=== PATIENT | female | born 1965 ===

== ENCOUNTER 2017-01-16 14:38 | Emergency (ER) | payer OTHER ==
[2017-01-16 14:39] VITALS: BMI 29.2
[2017-01-16 14:59] VITALS: TEMP 98.4
--- NOTE | 2017-01-16 15:29 | ED PDOC ---
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 Patient denies any recent trauma or injury. Patient states she's been having pain to the right thumb for a little over a month. Patient states the pain started suddenly. The patient states that she has continued to work with the pain. She states that she uses her hands frequently at work and thinks that is continue to aggravate the pain. She has not taken any medications for pain at home. She denies numbness weakness or tingling in the extremity. No fevers or chills. No other complaints Time/Duration: > month (>1 month) Symptom Onset: Gradual Symptom Course: Worsening Quality: Aching, Throbbing Severity Level: 8 Past Medical History - Provider Review Nursing Documentation Reviewed: Yes - Travel History Have you recently traveled outside [place] w/in the past 3 mons?: No - Infectious Disease Hx of Infectious Diseases: None - Tetanus Immunization Tetanus Immunization: Unknown - Reproductive Menopause: Yes - Past Medical History Past Medical History: Non-Contributing - Cardiac Hx Cardiac Disorders: Yes Hx Hypertension: Yes - Pulmonary Hx Respiratory Disorders: No - Neurological Hx Neurological Disorder: Yes - HEENT Hx HEENT Disorder: No - Renal Hx Renal Disorder: No - Endocrine/Metabolic Hx Endocrine Disorders: No - Hematological/Oncological Hx Blood Disorders: No - Integumentary Hx Dermatological Disorder: No - Musculoskeletal/Rheumatological Hx Musculoskeletal Disorders: Yes Hx Falls: Yes Other/Comment: SCIATICA - Gastrointestinal Hx Gastrointestinal Disorders: No - Genitourinary/Gynecological Hx Genitourinary Disorders: No - Psychiatric Hx Psychophysiologic Disorder: Yes Hx Anxiety: Yes Hx Depression: Yes Hx Substance Use: No Other/Comment: Insomia - Past Surgical History Past Surgical History: No Previous - Anesthesia Hx Anesthesia: No Hx Anesthesia Reactions: No Hx Malignant Hyperthermia: No - Suicidal Assessment Feels Threatened In Home Enviroment: No Family/Social History - Physician Review Nursing Documentation Reviewed: Yes Family/Social History: Unknown Family HX Smoking Status: Never Smoked Hx Alcohol Use: No Hx Substance Use: No Hx Substance Use Treatment: No Allergies/Home Meds Allergies/Adverse Reactions: Allergies No Known Allergies Allergy (Verified 08/03/15 17:03) Home Medications: Home Meds Medication Instructions Recorded Confirmed Atenolol 50 mg PO DAILY 08/03/15 01/16/17 amLODIPine [Norvasc] 5 mg PO DAILY 01/16/17 01/16/17 Review of Systems - Review of Systems Constitutional: absent: Fatigue, Fevers Respiratory: absent: SOB, Cough Cardiovascular: absent: Chest Pain, Palpitations Gastrointestinal: absent: Abdominal Pain, Vomiting Genitourinary Female: absent: Dysuria Musculoskeletal: Arthralgias (right thumb pain). absent: Back Pain, Neck Pain Skin: absent: Rash, Pruritis Neurological: absent: Headache, Dizziness Psychiatric: absent: Anxiety, Depression Physical Exam Vital Signs Reviewed: Yes Vital Signs Temp Pulse Resp BP Pulse Ox 01/16/17 14:58 98.4 F 72 16 107/72 98 Temperature: Afebrile Blood Pressure: Normal Pulse: Regular Respiratory Rate: Normal Appearance: Positive for: Well-Appearing, Non-Toxic, Comfortable Pain Distress: None Mental Status: Positive for: Alert and Oriented X 3 - Systems Exam Head: Present: Atraumatic Mouth: Present: Moist Mucous Membranes Neck: Present: Normal Range of Motion Respiratory/Chest: Present: Clear to Auscultation, Good Air Exchange. No: Respiratory Distress, Accessory Muscle Use Cardiovascular: Present: Regular Rate and Rhythm Upper Extremity: Present: NORMAL PULSES, Tenderness (right thumb; + ttp over volar aspect of thumb over 1st metacarpal; limited rom of thumb with pain; no erythema; + minimal edema to thenar eminence. sensation and distal pulses intact. cap refill <2. ), Swelling, Neurovascularly Intact, Capillary Refill < 2s. No: Normal ROM, Erythema, Deformity Neurological: Present: GCS=15 Skin: Present: Warm, Dry, Normal Color. No: Rashes Psychiatric: Present: Alert, Oriented x 3 Medical Decision Making ED Course and Treatment: 01/16/17 16:56 Patient nontoxic well-appearing in no distress with stable vital signs X-rays of the right thumb; no fracture as read by radiologist toradol and tramadol given for pain Patient placed in thumb spica applied. 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 advised to followup with the orthopedist for the next 2 days. advised using splint. advised immediate Return if symptoms worsen persist or new symptoms develop Patient verbalizes understanding of discharge instructions and need for immediate followup. Impression: Thumb pain Motrin every 6 hours as needed for pain Rest, ice, compression, elevation Use splint. Followup with the orthopedist within the next 2 days Followup with primary care physician within the next 2 days Return if any other concerning symptoms develop - RAD Interpretation Radiology Orders: 01/16/17 15:24 HAND RIGHT THUMB [RAD] Stat - Medication Orders Current Medication Orders: Ketorolac Tromethamine (Toradol) 60 mg IM STAT STA Stop: 01/16/17 15:26 Tramadol HCl (Ultram) 50 mg PO STAT STA Stop: 01/16/17 15:26 Disposition/Present on Arrival - Present on Arrival Any Indicators Present on Arrival: No History of DVT/PE: No History of Uncontrolled Diabetes: No Urinary Catheter: No History of Decub. Ulcer: No History Surgical Site Infection Following: None - Disposition Have Diagnosis and Disposition been Completed?: Yes Diagnosis: Thumb pain Disposition: HOME/ ROUTINE Disposition Time: 16:57 Patient Plan: Discharge Condition: GOOD Additional Instructions: Motrin every 6 hours as needed for pain Rest, ice, compression, elevation Use splint. Followup with the orthopedist within the next 2 days Followup with primary care physician within the next 2 days Return if any other concerning symptoms develop Prescriptions: Ibuprofen [Motrin] 600 mg PO Q6H PRN #20 tab PRN Reason: pain/fever reduction Referrals: Víctor Arthur MD [Staff Provider] - Follow up with primary Della Velásquez MD [Non-Staff] - Follow up with primary [facility] [place] [Outside] - Follow up with primary [facility] [place] [Outside] - Follow up with primary Forms: [employer] (Georgian), WORK NOTE
--- NOTE | 2017-01-16 16:05 | RAD ---
PROCEDURE: Right Hand and thumb Radiographs. HISTORY: right thumb pain x 1 month COMPARISON: None. FINDINGS: BONES: Normal. No fracture. JOINTS: Normal. No osteoarthritic changes. SOFT TISSUES: Normal. OTHER FINDINGS: None. IMPRESSION: Negative study
[2017-01-16 17:05] VITALS: BP 126/58; PULSE 64; RESP 18; O2SAT 98
== END 2017-01-16 17:10 | disposition home or self-care (01) ==
LOC: ED 14:38
DX: M79.644 Pain in right finger(s) (principal)
CPT/HCPCS: 29130; 73140; 96372; 99284; J1885

== ENCOUNTER 2017-10-06 19:18 | Observation (INO) | payer OTHER ==
[2017-10-06] MEDS ORDERED: Morphine 4 mg/ml ISec IVP STA (19:50)
[2017-10-06] MEDS ORDERED: Pantoprazole 40 MG in Sodium Chloride 0.9% 100 ML IV STA (19:50)
[2017-10-06] MEDS ORDERED: Sodium Chloride 0.9% 1,000 ML IV STA (19:50)
[2017-10-06 20:21] LABS: URINE BILIRUBIN NEGATIVE (NEGATIVE); URINE BLOOD NEGATIVE (NEGATIVE); URINE GLUCOSE (UA) NEGATIVE (NEGATIVE); URINE LEUKOCYTE ESTERASE SMALL Leu/uL (NEGATIVE); URINE PROTEIN NEGATIVE mg/dL (<30 mg/dL); URINE UROBILINOGEN 0.2 E.U./dL (<1 E.U./dL)
[2017-10-06 20:28] LABS: URINE APPEARANCE CLEAR (CLEAR); URINE COLOR YELLOW (YELLOW)
[2017-10-06 20:50] LABS: URINE BACTERIA FEW (NEG); URINE RBC NEGATIVE /hpf (0-2)
[2017-10-06 21:05] LABS: BASO # 0.01 K/mm3 (0.0-2.0); BASO % 0.2 % (0.0-3.0); EOS # 0.1 (0.0-0.7); EOS % 1.7 % (1.5-5.0); GRAN # 4.22 (1.4-6.5); GRAN % 71.8 % (50.0-68.0); HEMOGLOBIN 12.4 g/dL (12.0-16.0); LYMPH # 1.1 (1.2-3.4); LYMPH % 19.2 % (22.0-35.0); MEAN CELL VOLUME 90.3 fl (80.0-105.0); MEAN CORPUSCULAR HEMOGLOBIN 30.9 pg (25.0-35.0); MEAN CORPUSCULAR HGB CONC 34.3 g/dl (31.0-37.0); MEAN PLATELET VOLUME 11.3 fl (7.0-11.0); MONO # 0.4 (0.1-0.6); MONO % 7.1 % (1.0-6.0); RBC 4.01 10^6/uL (3.5-6.1); RED CELL DISTRIBUTION WIDTH 13.3 % (11.5-14.5); WHITE BLOOD COUNT 5.9 10^3/ul (4.5-11.0)
[2017-10-06 21:14] LABS: INR 1.06 (0.93-1.08); PARTIAL THROMBOPLASTIN TIME 27.2 Seconds (25.1-36.5); PROTHROMBIN TIME 12.1 SECONDS (9.4-12.5)
[2017-10-06 21:17] LABS: ALB/GLOB RATIO 1.2 (1.1-1.8); ALBUMIN 4.2 g/dL (3.0-4.8); ALT/SGPT 31 U/L (7-56); AMYLASE 69 U/L (35-125); AST/SGOT 30 U/L (14-36); BLOOD UREA NITROGEN 15 mg/dL (7-21); GFR AFRICAN-AMERICAN > 60; GFR NON-AFRICAN AMERICAN > 60; LIPASE 117 U/L (23-300)
[2017-10-06 21:28] LABS: TROPONIN I < 0.01 ng/mL
--- NOTE | 2017-10-06 21:44 | ED PDOC ---
Arrival/HPI - General Chief Complaint: Abdominal Pain Time Seen by Provider: 10/06/17 19:39 Historian: Patient - History of Present Illness Narrative History of Present Illness (Text): 10/06/17 19:50 Rina Crane is a 52 year old female, whose past medical history includes hypertension, who presents to the Emergency department complaining of abdominal pain. Patient states she has been experiencing epigastric/RUQ pain today with associated nausea. Patient denies any fever, chills, chest pain, shortness of breath, urinary symptoms, back pain, neck pain, headache, dizziness , or any other complaints. Symptom Onset: Gradual Symptom Course: Unchanged Activities at Onset: Light Context: Home Past Medical History - Provider Review Nursing Documentation Reviewed: Yes - Infectious Disease Hx of Infectious Diseases: None - Tetanus Immunization Tetanus Immunization: Unknown - Past Medical History Past Medical History: Non-Contributing - Cardiac Hx Hypertension: Yes - Pulmonary Hx Respiratory Disorders: No - Neurological Hx Neurological Disorder: Yes - HEENT Hx HEENT Disorder: No - Renal Hx Renal Disorder: No - Endocrine/Metabolic Hx Endocrine Disorders: No - Hematological/Oncological Hx Blood Disorders: No - Integumentary Hx Dermatological Disorder: No - Musculoskeletal/Rheumatological Hx Osteoporosis: Yes - Gastrointestinal Hx Gastrointestinal Disorders: No - Genitourinary/Gynecological Hx Genitourinary Disorders: No - Psychiatric Hx Anxiety: Yes Hx Depression: Yes Hx Substance Use: No - Past Surgical History Past Surgical History: No Previous - Anesthesia Hx Anesthesia: No Hx Anesthesia Reactions: No Hx Malignant Hyperthermia: No - Suicidal Assessment Feels Threatened In Home Enviroment: No Family/Social History - Physician Review Nursing Documentation Reviewed: Yes Family/Social History: Unknown Family HX Smoking Status: Never Smoked Hx Alcohol Use: No Hx Substance Use: No Hx Substance Use Treatment: No Allergies/Home Meds Allergies/Adverse Reactions: Allergies No Known Allergies Allergy (Verified 04/14/17 11:21) Review of Systems - Physician Review All systems were reviewed & negative as marked: Yes - Review of Systems Constitutional: Normal. absent: Fevers Eyes: Normal ENT: Normal Respiratory: Normal. absent: SOB, Cough Cardiovascular: Normal. absent: Chest Pain Gastrointestinal: Abdominal Pain Genitourinary Female: Normal. absent: Dysuria, Frequency, Hematuria, Urine Output Changes Musculoskeletal: Normal. absent: Back Pain, Neck Pain Skin: Normal. absent: Rash Neurological: Normal. absent: Headache, Dizziness Endocrine: Normal Hemo/Lymphatic: Normal Psychiatric: Normal Physical Exam Vital Signs Reviewed: Yes Vital Signs Temp Pulse Resp BP Pulse Ox 10/06/17 23:17 98.7 F 76 18 120/71 99 10/06/17 19:31 97.6 F 72 18 123/86 97 Temperature: Afebrile Blood Pressure: Normal Pulse: Regular Respiratory Rate: Normal Appearance: Positive for: Well-Appearing, Non-Toxic, Comfortable Pain Distress: None Mental Status: Positive for: Alert and Oriented X 3 - Systems Exam Head: Present: Atraumatic, Normocephalic Pupils: Present: PERRL Extroacular Muscles: Present: EOMI Conjunctiva: Present: Normal Mouth: Present: Moist Mucous Membranes Neck: Present: Normal Range of Motion Respiratory/Chest: Present: Clear to Auscultation, Good Air Exchange. No: Respiratory Distress, Accessory Muscle Use Cardiovascular: Present: Regular Rate and Rhythm, Normal S1, S2. No: Murmurs Abdomen: Present: Tenderness (Epigastric/RUQ tenderness). No: Distention, Peritoneal Signs Back: Present: Normal Inspection Upper Extremity: Present: Normal Inspection. No: Cyanosis, Edema Lower Extremity: Present: Normal Inspection. No: Edema Neurological: Present: GCS=15, CN II-XII Intact, Speech Normal Skin: Present: Warm, Dry, Normal Color. No: Rashes Psychiatric: Present: Alert, Oriented x 3, Normal Insight, Normal Concentration Medical Decision Making ED Course and Treatment: 10/06/17 19:50 Impression: 52 year old female complaining of RUQ/epigastric pain today. Differential Diagnosis included but are not limited to: Plan: -- US Gallbladder -- EKG -- Labs, cardiac enzymes, amylase, lipase -- Urinalysis, urine cultures -- IV fluids -- Zofran -- Protonix -- Morphine -- Reassess and disposition Prior Visits: Notes and results from previous visits were reviewed. Progress Notes: 10/06/17 20:03 Reviewed EKG, NSR at [address]-segment elevations or depressions, no T-wave inversions, normal intervals. 10/06/17 23:59 EXAM: CT Abdomen and Pelvis With Intravenous Contrast FINDINGS: LUNG BASES: No significant abnormality seen. ABDOMEN: LIVER: Fatty infiltration of the liver. GALLBLADDER AND BILE DUCTS: Small amount of pericholecystic fluid. This was not seen on the recent ultrasound, most likely because of bowel gas. Moderate gallbladder dilatation. Minimal dilatation of the common bile duct, as seen on the recent ultrasound, 6.3 mm. No radiopaque common bile duct stones are visualized. No radioopaque gallstones are seen. No evidence of significant pericholecystic inflammatory changes. PANCREAS: No CT evidence of acute pancreatitis. SPLEEN: No acute abnormality of the spleen identified. ADRENALS: No acute abnormality of the adrenal glands identified. KIDNEYS AND URETERS: 1.9 cm fluid density right renal lesion, most compatible with a cyst. Tiny, nonobstructing right renal stones. No evidence of hydroureteronephrosis. STOMACH AND BOWEL: Fecalization and mild dilatation of multiple distal small bowel loops. There is no definite single abrupt transition point seen in the small bowel. There is no evidence of diffuse small bowel dilatation. No definite decompressed small bowel loops are seen. Findings are most likely due to a mild ileus of the small bowel. Retained stool noted throughout the right hemicolon, with no evidence of a significant large bowel obstruction or fecal impaction. Bowel is otherwise unremarkable in appearance. No acute abnormality of the stomach or duodenum identified. PELVIS: APPENDIX: Appendix is seen, and is within normal limits in appearance. BLADDER: No acute abnormality of the bladder identified. REPRODUCTIVE:No acute abnormality of the reproductive organs is seen. No acute abnormality of the uterus identified. No evidence of large adnexal masses. ABDOMEN and PELVIS: INTRAPERITONEAL SPACE: No evidence of free intraperitoneal air or fluid. BONES/JOINTS: No acute fractures or other acute bony abnormality noted. SOFT TISSUES: No acute abnormality of the visualized soft tissues is seen. VASCULATURE: No evidence of abdominal aortic aneurysm. No evidence of periaortic hemorrhage. LYMPH NODES: No evidence of diffuse lymphadenopathy. IMPRESSION: - Pericholecystic fluid versus gallbladder wall thickening. This finding can be seen in the setting of chronic cholecystitis and acute or chronic liver disease. Acute cholecystitis is not excluded, however. No pericholecystic inflammation. Recommend clinical correlation. - Small bowel findings which are most likely due to a mild ileus of the small bowel. - See above for remaining findings. Dictated and Authenticated by: Sun Hewtit MD 10/06/2017 11:53 PM Eastern Time ([place] & [place]) EXAM: US Abdomen Limited, Right Upper Quadrant FINDINGS: Limitations: Overall suboptimal visualization, due to bowel gas. Gallbladder: Somewhat poorly seen due to gas. Within normal limits in appearance , with no evidence of gallstones, significant gallbladder wall thickening, or pericholecystic fluid. Reportedly negative sonographic Venegas's sign. Common bile duct: Measures 6.3 mm in diameter (normal less than 6 mm). No common bile duct stones are visualized. Liver: Incompletely seen due to gas. Demonstrates diffusely increased parenchymal echogenicity, most compatible with fatty infiltration. Normal in size, measuring 13.7 cm in length. Normal flow seen in the main portal vein on color and Doppler imaging. Pancreas: Poorly seen due to gas. Imaged portions appear unremarkable. Right kidney: Contains a 1.8 x 1.6 cm round simple cystic lesion, located in the renal pelvis, compatible with a peripelvic cyst. Otherwise unremarkable in appearance. Measures 9.5 cm in length. IMPRESSION: Slightly dilated common bile duct, 6.3 mm, of uncertain etiology. Recommend correlation with LFTs for laboratory evidence of biliary obstruction. Otherwise, no evidence of significant acute process, allowing for bowel gas. No evidence of gallstones or cholecystitis. Fatty liver. Right renal peripelvic cyst. See above for remaining findings. Dictated and Authenticated by: Sun Hewitt MD 10/06/2017 10:05 PM Eastern Time ([place] & [place]) - Lab Interpretations Microbiology Results: Microbiology Results 10/06/17 20:10 Urine,Clean Catch Urine Culture - Final No Growth (<1,000 CFU/ML) Lab Results: 10/06/17 20:45 10/06/17 20:45 Lab Results 10/06/17 20:45: Hemoglobin A1c 5.8 10/06/17 20:45: Sodium 142, Potassium 3.9, Chloride 103, Carbon Dioxide 27, Anion Gap 16, BUN 15, Creatinine 0.7, Est GFR ( Amer) > 60, Est GFR (Non- Af Amer) > 60, Random Glucose 141 H, Calcium 9.0, Total Bilirubin 0.2, AST 30, ALT 31, Alkaline Phosphatase 81, Lactate Dehydrogenase 512, Total Creatine Kinase 77, Troponin I < 0.01, Total Protein 7.7, Albumin 4.2, Globulin 3.6, Albumin/Globulin Ratio 1.2, Amylase 69, Lipase 117 10/06/17 20:45: PT 12.1, INR 1.06, APTT 27.2 10/06/17 20:45: WBC 5.9 D, RBC 4.01, Hgb 12.4, Hct 36.2, MCV 90.3, MCH 30.9, MCHC 34.3, RDW 13.3, Plt Count 178, MPV 11.3 H, Gran % 71.8 H, Lymph % (Auto) 19.2 L, Foard % (Auto) 7.1 H, Eos % (Auto) 1.7, Baso % (Auto) 0.2, Gran # 4.22, Lymph # (Auto) 1.1 L, Foard # (Auto) 0.4, Eos # (Auto) 0.1, Baso # (Auto) 0.01 10/06/17 20:10: Urine Color Yellow, Urine Appearance Clear, Urine pH 7.0, Ur Specific [place] 1.015, Urine Protein Negative, Urine Glucose (UA) Negative, Urine Ketones Negative, Urine Blood Negative, Urine Nitrate Negative, Urine Bilirubin Negative, Urine Urobilinogen 0.2, Ur Leukocyte Esterase Small H, Urine RBC Negative, Urine WBC 1 - 3, Ur Epithelial Cells 3 - 4, Urine Bacteria Few - RAD Interpretation Radiology Orders: 10/06/17 19:59 GALL BLADDER [US] Stat 10/06/17 22:19 ABD & PELVIS IV CONTRAST ONLY [CT] Stat - EKG Interpretation Interpreted by ED Physician: Yes Type: 12 lead EKG - Medication Orders Current Medication Orders: Discontinued Medications Amlodipine Besylate (Norvasc) 5 mg PO DAILY [facility] Last Admin: 10/07/17 10:49 Dose: Not Given Non-Admin Reason: NPO Atenolol (Tenormin) 50 mg PO DAILY [facility] Last Admin: 10/07/17 10:48 Dose: Not Given Non-Admin Reason: NPO Clonazepam (Klonopin) 0.5 mg PO HS PRN; Protocol PRN Reason: Insomnia Last Admin: 10/07/17 04:10 Dose: 0.5 mg Behavioural Document 10/07/17 04:10 RM (Rec: 10/07/17 04:10 RM [id number]) Maintenance Maintenance Dose Yes Pantoprazole Sodium 40 mg/ (Sodium Chloride) 100 mls @ 400 mls/hr IV STAT STA Stop: 10/06/17 20:04 Last Admin: 10/06/17 20:23 Dose: 400 mls/hr eMAR Start Stop Document 10/06/17 20:23 EQ (Rec: 10/06/17 20:23 EQ [id number]) Intravenous Solution Start Date 10/06/17 Start Time 20:23 Sodium Chloride (Sodium Chloride 0.9%) 1,000 mls @ 100 mls/hr IV .Q10H STA Stop: 10/07/17 05:49 Last Admin: 10/06/17 20:23 Dose: 100 mls/hr eMAR Start Stop Document 10/06/17 20:23 EQ (Rec: 10/06/17 20:23 EQ [id number]) Intravenous Solution Start Date 10/06/17 Start Time 20:23 Metronidazole (Flagyl) 500 mg in 100 mls @ 100 mls/hr IVPB STAT STA PRN Reason: Protocol Stop: 10/07/17 01:41 Last Admin: 10/07/17 02:54 Dose: 100 mls/hr eMAR Start Stop Document 10/07/17 02:54 RM (Rec: 10/07/17 02:54 RM [facility] [id number]) Intravenous Solution Start Date 10/07/17 Start Time 02:54 End Date 10/07/17 End time 03:54 Total Infusion Time 60 Ceftriaxone Sodium (Rocephin 1 Gram Ivpb) 1 gm in 100 mls @ 200 mls/hr IVPB STAT STA PRN Reason: Protocol Stop: 10/07/17 01:11 Last Admin: 10/07/17 01:19 Dose: 200 mls/hr eMAR Start Stop Document 10/07/17 01:19 AD (Rec: 10/07/17 01:20 AD [id number]) Intravenous Solution Start Date 10/07/17 Start Time 01:20 Metronidazole (Flagyl) 500 mg in 100 mls @ 100 mls/hr IVPB Q8H JORGITO PRN Reason: Protocol Last Admin: 10/07/17 12:30 Dose: 100 mls/hr eMAR Start Stop Document 10/07/17 12:30 RT (Rec: 10/07/17 16:02 RT [id number]) Intravenous Solution Start Date 10/07/17 Start Time 12:30 Ceftriaxone Sodium (Rocephin 1 Gram Ivpb) 1 gm in 100 mls @ 100 mls/hr IVPB DAILY JORGITO PRN Reason: Protocol Last Admin: 10/07/17 10:48 Dose: 100 mls/hr eMAR Start Stop Document 10/07/17 10:48 RT (Rec: 10/07/17 10:48 RT CORI) Intravenous Solution Start Date 10/07/17 Start Time 10:48 End Date 10/07/17 End time 11:45 Total Infusion Time 57 Sodium Chloride (Sodium Chloride 0.9%) 1,000 mls @ 100 mls/hr IV .Q10H JORGITO Last Admin: 10/07/17 08:05 Dose: 100 mls/hr eMAR Start Stop Document 10/07/17 08:05 RT (Rec: 10/07/17 08:05 RT CORI) Intravenous Solution Start Date 10/07/17 Start Time 08:05 Ibuprofen (Motrin Tab) 600 mg PO Q6H PRN PRN Reason: Pain, moderate (4-7) Meloxicam (Mobic) 7.5 mg PO DAILY PRN PRN Reason: Pain, Mild (1-3) Morphine Sulfate (Morphine) 2 mg IVP STAT STA Stop: 10/06/17 19:51 Last Admin: 10/06/17 20:24 Dose: 2 mg MAR Pain Assessment Document 10/06/17 20:24 EQ (Rec: 10/06/17 20:24 EQ [id number]) Pain Reassessment Is this a pain reassessment? No Sleep Is patient sleeping during reassessment? No Presence of Pain Presence of Pain Yes IVP Administration Document 10/06/17 20:24 EQ (Rec: 10/06/17 20:24 EQ [id number]) Charges for Administration # of IVP Administrations 1 Morphine Sulfate (Morphine) 2 mg IVP Q4H PRN PRN Reason: Pain, severe (8-10) Morphine Sulfate (Morphine) 2 mg IVP Q4H PRN PRN Reason: Pain, severe (8-10) Ondansetron HCl (Zofran Inj) 4 mg IVP STAT STA Stop: 10/06/17 19:51 Last Admin: 10/06/17 20:23 Dose: 4 mg IVP Administration Document 10/06/17 20:23 EQ (Rec: 10/06/17 20:24 EQ [id number]) Charges for Administration # of IVP Administrations 1 Ondansetron HCl (Zofran Inj) 4 mg IVP Q6H PRN PRN Reason: Nausea/Vomiting Pantoprazole Sodium (Protonix Inj) 40 mg IVP 0800 JORGITO Last Admin: 10/07/17 08:07 Dose: 40 mg IVP Administration Document 10/07/17 08:07 RT (Rec: 10/07/17 08:07 RT [id number]) Charges for Administration # of IVP Administrations 1 - Scribe Statement The provider has reviewed the documentation as recorded by the Scribe Pearl Fraga All medical record entries made by the Scribe were at my direction and personally dictated by me. I have reviewed the chart and agree that the record accurately reflects my personal performance of the history, physical exam, medical decision making, and the department course for this patient. I have also personally directed, reviewed, and agree with the discharge instructions and disposition. Disposition/Present on Arrival - Present on Arrival Any Indicators Present on Arrival: No History of DVT/PE: No History of Uncontrolled Diabetes: No Urinary Catheter: No History of Decub. Ulcer: No History Surgical Site Infection Following: None - Disposition Have Diagnosis and Disposition been Completed?: Yes Diagnosis: Abdominal pain Disposition: HOSPITALIZED Disposition Time: 00:25 Condition: GOOD
--- NOTE | 2017-10-06 22:05 | US ---
EXAM: US Abdomen Limited, Right Upper Quadrant EXAM DATE/TIME: 10/06/2017 7:59 PM CLINICAL HISTORY: 52 years old, female; Pain; Abdominal pain; Flank; Right upper quadrant (ruq); Additional info: Ruq pain TECHNIQUE: Real-time ultrasound of the right upper quadrant with image documentation. COMPARISON: No relevant prior studies available. FINDINGS: Limitations: Overall suboptimal visualization, due to bowel gas. Gallbladder: Somewhat poorly seen due to gas. Within normal limits in appearance, with no evidence of gallstones, significant gallbladder wall thickening, or pericholecystic fluid. Reportedly negative sonographic Venegas's sign. Common bile duct: Measures 6.3 mm in diameter (normal less than 6 mm). No common bile duct stones are visualized. Liver: Incompletely seen due to gas. Demonstrates diffusely increased parenchymal echogenicity, most compatible with fatty infiltration. Normal in size, measuring 13.7 cm in length. Normal flow seen in the main portal vein on color and Doppler imaging. Pancreas: Poorly seen due to gas. Imaged portions appear unremarkable. Right kidney: Contains a 1.8 x 1.6 cm round simple cystic lesion, located in the renal pelvis, compatible with a peripelvic cyst. Otherwise unremarkable in appearance. Measures 9.5 cm in length. IMPRESSION: Slightly dilated common bile duct, 6.3 mm, of uncertain etiology. Recommend correlation with LFTs for laboratory evidence of biliary obstruction. Otherwise, no evidence of significant acute process, allowing for bowel gas. No evidence of gallstones or cholecystitis. Fatty liver. Right renal peripelvic cyst. See above for remaining findings.
[2017-10-06] MEDS ORDERED: Iohexol 350 MG/100 ML VIAL ONE (22:44)
--- NOTE | 2017-10-06 23:53 | CT ---
EXAM: CT Abdomen and Pelvis With Intravenous Contrast EXAM DATE/TIME: 10/06/2017 10:19 PM CLINICAL HISTORY: 52 years old, female; Pain and signs and symptoms; Nausea and vomiting; Abdominal pain; Generalized; Additional info: Abd pain TECHNIQUE: Axial computed tomography images of the abdomen and pelvis with intravenous contrast. All CT scans at this facility use one or more dose reduction techniques, viz.: automated exposure control; ma/kV adjustment per patient size (including targeted exams where dose is matched to indication; i.e. head); or iterative reconstruction technique. Coronal and sagittal reformatted images were created and reviewed. CONTRAST: 100 mL of OMNI 350 administered intravenously. COMPARISON: Recent abdominal ultrasound. FINDINGS: LUNG BASES: No significant abnormality seen. ABDOMEN: LIVER: Fatty infiltration of the liver. GALLBLADDER AND BILE DUCTS: Small amount of pericholecystic fluid. This was not seen on the recent ultrasound, most likely because of bowel gas. Moderate gallbladder dilatation. Minimal dilatation of the common bile duct, as seen on the recent ultrasound, 6.3 mm. No radiopaque common bile duct stones are visualized. No radioopaque gallstones are seen. No evidence of significant pericholecystic inflammatory changes. PANCREAS: No CT evidence of acute pancreatitis. SPLEEN: No acute abnormality of the spleen identified. ADRENALS: No acute abnormality of the adrenal glands identified. KIDNEYS AND URETERS: 1.9 cm fluid density right renal lesion, most compatible with a cyst. Tiny, nonobstructing right renal stones. No evidence of hydroureteronephrosis. STOMACH AND BOWEL: Fecalization and mild dilatation of multiple distal small bowel loops. There is no definite single abrupt transition point seen in the small bowel. There is no evidence of diffuse small bowel dilatation. No definite decompressed small bowel loops are seen. Findings are most likely due to a mild ileus of the small bowel. Retained stool noted throughout the right hemicolon, with no evidence of a significant large bowel obstruction or fecal impaction. Bowel is otherwise unremarkable in appearance. No acute abnormality of the stomach or duodenum identified. PELVIS: APPENDIX: Appendix is seen, and is within normal limits in appearance. BLADDER: No acute abnormality of the bladder identified. REPRODUCTIVE:No acute abnormality of the reproductive organs is seen. No acute abnormality of the uterus identified. No evidence of large adnexal masses. ABDOMEN and PELVIS: INTRAPERITONEAL SPACE: No evidence of free intraperitoneal air or fluid. BONES/JOINTS: No acute fractures or other acute bony abnormality noted. SOFT TISSUES: No acute abnormality of the visualized soft tissues is seen. VASCULATURE: No evidence of abdominal aortic aneurysm. No evidence of periaortic hemorrhage. LYMPH NODES: No evidence of diffuse lymphadenopathy. IMPRESSION: - Pericholecystic fluid versus gallbladder wall thickening. This finding can be seen in the setting of chronic cholecystitis and acute or chronic liver disease. Acute cholecystitis is not excluded, however. No pericholecystic inflammation. Recommend clinical correlation. - Small bowel findings which are most likely due to a mild ileus of the small bowel. - See above for remaining findings.
[2017-10-07] MEDS ORDERED: metroNIDAZOLE IV 500 mg/100 ml 500 MG/100 ML BAG IVPB STA (00:42)
[2017-10-07] MEDS ORDERED: cefTRIAXone 1 gm 1 GM/100 ML BAG IVPB STA (00:42)
[2017-10-07] MEDS ORDERED: Meloxicam 7.5 MG TAB PO PRN (01:07)
--- NOTE | 2017-10-07 01:34 | CP.PCM.HP ---
<Rand Davis - Last Filed: 10/07/17 03:37> History of Present Illness - History of Present Illness History of Present Illness: This patient is a 52 year old French-speaking female with a PMHx of HTN, Depression, and Insomnia who presents complaining of 8/10 RUQ pain that started around 3pm 10/07/17. Patient was at rest when it started. She describes it as constant and non-radiating. She is unable to give a description of the quality of the pain. She took omeprazole and Pepto-Bismol to relieve her symptoms without success. She states the pain is worse with food. Associated with her abdominal pain is nausea, subjective fever, chills, and one episode of non- bloody/non-bilious vomiting. Patient denies any changes in bowel habits, urinary symptoms, chest pain, or shortness of breath. ROS: As stated above PMHx: HTN, Insomina, Depresson PSHx: Denies Allergies: NKDA SocialHx: Denies tobacco, alcohol, or illicit drug use Hos: 3 years ago for Bronchitis FamHx: Non-Cont. Meds: Reviewed. Primary: Tg Medrano APN at [facility] Present on Admission - Present on Admission Any Indicators Present on Admission: No Review of Systems - Review of Systems All systems: reviewed and no additional remarkable complaints except (as per HPI ) Review of Systems: HPI Past Patient History - Infectious Disease Hx of Infectious Diseases: None - Tetanus Immunizations Tetanus Immunization: Unknown - Past Social History Smoking Status: Never Smoked - CARDIAC Hx Hypertension: Yes - PULMONARY Hx Respiratory Disorders: No - NEUROLOGICAL Hx Neurological Disorder: Yes - HEENT Hx HEENT Problems: No - RENAL Hx Chronic Kidney Disease: No - ENDOCRINE/METABOLIC Hx Endocrine Disorders: No - HEMATOLOGICAL/ONCOLOGICAL Hx Blood Disorders: No - INTEGUMENTARY Hx Dermatological Problems: No - MUSCULOSKELETAL/RHEUMATOLOGICAL Hx Osteoporosis: Yes - GASTROINTESTINAL Hx Gastrointestinal Disorders: No - GENITOURINARY/GYNECOLOGICAL Hx Genitourinary Disorders: No - PSYCHIATRIC Hx Anxiety: Yes Hx Depression: Yes Hx Substance Use: No - SURGICAL HISTORY Hx Surgeries: No - ANESTHESIA Hx Anesthesia: No Hx Anesthesia Reactions: No Hx Malignant Hyperthermia: No Meds Allergies/Adverse Reactions: Allergies Allergy/AdvReac Type Severity Reaction Status Date / Time No Known Allergies Allergy Verified 04/14/17 11:21 Physical Exam - Constitutional Appears: Non-toxic, No Acute Distress - Head Exam Head Exam: ATRAUMATIC, NORMAL INSPECTION, NORMOCEPHALIC - Eye Exam Eye Exam: Normal appearance. absent: Scleral icterus - ENT Exam ENT Exam: Mucous Membranes Moist - Respiratory Exam Respiratory Exam: Clear to Auscultation Bilateral, NORMAL BREATHING PATTERN - Cardiovascular Exam Cardiovascular Exam: RRR, +S1, +S2 - GI/Abdominal Exam GI & Abdominal Exam: Guarding (Voluntary), Normal Bowel Sounds, Soft, Tenderness (RUQ). absent: Distended, Firm, Organomegaly Additional comments: Negative Venegas's Sign - Extremities Exam Extremities exam: Positive for: normal capillary refill, normal inspection. Negative for: tenderness - Neurological Exam Neurological exam: Alert, Oriented x3 - Psychiatric Exam Psychiatric exam: Normal Affect, Normal Mood Results - Vital Signs Recent Vital Signs: Last Vital Signs Temp 98.7 F 10/06/17 23:17 Pulse 76 10/06/17 23:17 Resp 18 10/06/17 23:17 BP 120/71 10/06/17 23:17 Pulse Ox 99 10/06/17 23:17 - Labs Result Diagrams: 10/06/17 20:45 10/06/17 20:45 Assessment & Plan - Assessment and Plan (Free Text) Assessment: 52 Year old female with PMHx of HTN, Depression, and Insomnia presents with abdominal pain. CT Abd/Pelvis showed pericholecystic fluid vs gallbladder wall thickening. Admitted for evaluation and treatment of cholecystitis. Plan: Cholecystitis (Acute vs Chronic) CT Abd/Pelvis Admission: Pericholecystic fluid vs Gallbladder wall thickening Gallbladder US (Admission): Slightly dialted common bile duct. 6.3mm of uncertain etiology. ED: Rocephin/Flagyl, Fluids, Zofran, Protonix, Morphine 2 NPO, Normal Saline @ 100, Rocephin/Flagyl Morphine 2 Q4 PRN GI Consult (Dr. Mejia) General Surg Consult (Dr. Kaiser) Hx of HTN Norvasc 5mg Daily Atenolol 50mg PO Daily Elevated Random Blood Sugar HgBA1C Proph Protonix/SCD's Patient discussed with Attending Rand Davis, PGY-1 <Yadira Wilson - Last Filed: 10/07/17 11:25> Results - Vital Signs Recent Vital Signs: Last Vital Signs Temp 97.7 F 10/07/17 08:22 Pulse 74 10/07/17 08:22 Resp 20 10/07/17 08:22 BP 103/67 10/07/17 08:22 Pulse Ox 96 10/07/17 08:22 - Labs Result Diagrams: 10/07/17 05:30 10/07/17 05:30 Labs: Laboratory Results - last 24 hr 10/07/17 10/07/17 05:30 05:30 WBC 5.0 RBC 4.15 Hgb 12.6 Hct 37.6 MCV 90.6 MCH 30.4 MCHC 33.5 RDW 13.5 Plt Count 166 MPV 11.1 H Gran % 54.5 Lymph % (Auto) 29.9 [place] % (Auto) 12.4 H Eos % (Auto) 3.0 Baso % (Auto) 0.2 Gran # 2.72 Lymph # (Auto) 1.5 [place] # (Auto) 0.6 Eos # (Auto) 0.2 Baso # (Auto) 0.01 Sodium 142 Potassium 4.0 Chloride 106 Carbon Dioxide 26 Anion Gap 15 BUN 12 Creatinine 0.6 L Est GFR ( Amer) > 60 Est GFR (Non-Af Amer) > 60 Random Glucose 102 Calcium 8.9 Total Bilirubin 0.2 AST 28 ALT 33 Alkaline Phosphatase 81 Total Protein 7.4 Albumin 3.9 Globulin 3.5 Albumin/Globulin Ratio 1.1 Attending/Attestation - Attestation I have personally seen and examined this patient.: Yes I have fully participated in the care of the patient.: Yes I have reviewed all pertinent clinical information: Yes Notes (Text): 10/07/17 11:24 Patient was seen when she was in [id number]. Agree with history ,physical examination, assessment and plan.
[2017-10-07] MEDS ORDERED: Morphine 4 mg/ml ISec IVP PRN (02:48)
[2017-10-07 03:48] VITALS: BMI 32.0
[2017-10-07] MEDS ORDERED: Sodium Chloride 0.9% 1,000 ML IV SCH (06:30)
[2017-10-07 06:32] LABS: BASO # 0.01 K/mm3 (0.0-2.0); BASO % 0.2 % (0.0-3.0); EOS # 0.2 (0.0-0.7); GRAN # 2.72 (1.4-6.5); GRAN % 54.5 % (50.0-68.0); HEMOGLOBIN 12.6 g/dL (12.0-16.0); LYMPH # 1.5 (1.2-3.4); LYMPH % 29.9 % (22.0-35.0); MEAN CELL VOLUME 90.6 fl (80.0-105.0); MEAN CORPUSCULAR HEMOGLOBIN 30.4 pg (25.0-35.0); MEAN CORPUSCULAR HGB CONC 33.5 g/dl (31.0-37.0); MEAN PLATELET VOLUME 11.1 fl (7.0-11.0); MONO # 0.6 (0.1-0.6); MONO % 12.4 % (1.0-6.0); RBC 4.15 10^6/uL (3.5-6.1); RED CELL DISTRIBUTION WIDTH 13.5 % (11.5-14.5)
[2017-10-07 07:02] LABS: ALB/GLOB RATIO 1.1 (1.1-1.8); ALBUMIN 3.9 g/dL (3.0-4.8); ALT/SGPT 33 U/L (7-56); AST/SGOT 28 U/L (14-36); BLOOD UREA NITROGEN 12 mg/dL (7-21); CALCIUM 8.9 mg/dL (8.4-10.5); GFR AFRICAN-AMERICAN > 60; GFR NON-AFRICAN AMERICAN > 60
--- NOTE | 2017-10-07 07:31 | CP.PCM.CON ---
History of Present Illness - History of Present Illness History of Present Illness: Surgery: Dr. Kaiser CC: ABD pain HPI: 52F w. pmh of HTN, depression, and insomnia presents to ED w. RUQ and pain which began yesterday afternoon after eating. The pain was described as constant w. no alleviating/aggravating factors. She reports nausea, no vomiting. In ED CT and U/S had no defnitive findings of cholecystitis. When pt was seen later, symptoms had completely resolved. No complaints of pain. PMH: see above PSH: none Meds: MAR reviewed NKDA Social: No ETOH/tobacco/drugs Fhx: Non-contributory Review of Systems - Review of Systems All systems: reviewed and no additional remarkable complaints except (HPI) Past Patient History - Infectious Disease Hx of Infectious Diseases: None - Tetanus Immunizations Tetanus Immunization: Unknown - Past Social History Smoking Status: Never Smoked - CARDIAC Hx Hypertension: Yes - PULMONARY Hx Respiratory Disorders: No - NEUROLOGICAL Hx Neurological Disorder: Yes - HEENT Hx HEENT Problems: No - RENAL Hx Chronic Kidney Disease: No - ENDOCRINE/METABOLIC Hx Endocrine Disorders: No - HEMATOLOGICAL/ONCOLOGICAL Hx Blood Disorders: No - INTEGUMENTARY Hx Dermatological Problems: No - MUSCULOSKELETAL/RHEUMATOLOGICAL Hx Osteoporosis: Yes - GASTROINTESTINAL Hx Gastrointestinal Disorders: No - GENITOURINARY/GYNECOLOGICAL Hx Genitourinary Disorders: No - PSYCHIATRIC Hx Anxiety: Yes Hx Depression: Yes Hx Substance Use: No - SURGICAL HISTORY Hx Surgeries: No - ANESTHESIA Hx Anesthesia: No Hx Anesthesia Reactions: No Hx Malignant Hyperthermia: No Meds Allergies/Adverse Reactions: Allergies Allergy/AdvReac Type Severity Reaction Status Date / Time No Known Allergies Allergy Verified 04/14/17 11:21 - Medications Medications: Current Medications Amlodipine Besylate (Norvasc) 5 mg PO DAILY JORGITO Atenolol (Tenormin) 50 mg PO DAILY JORGITO Clonazepam (Klonopin) 0.5 mg PO HS PRN; Protocol PRN Reason: Insomnia Last Admin: 10/07/17 04:10 Dose: 0.5 mg Metronidazole (Flagyl) 500 mg in 100 mls @ 100 mls/hr IVPB Q8H JORGITO PRN Reason: Protocol Ceftriaxone Sodium (Rocephin 1 Gram Ivpb) 1 gm in 100 mls @ 100 mls/hr IVPB DAILY JORGITO PRN Reason: Protocol Sodium Chloride (Sodium Chloride 0.9%) 1,000 mls @ 100 mls/hr IV .Q10H JORGITO Ibuprofen (Motrin Tab) 600 mg PO Q6H PRN PRN Reason: Pain, moderate (4-7) Morphine Sulfate (Morphine) 2 mg IVP Q4H PRN PRN Reason: Pain, severe (8-10) Ondansetron HCl (Zofran Inj) 4 mg IVP Q6H PRN PRN Reason: Nausea/Vomiting Pantoprazole Sodium (Protonix Inj) 40 mg IVP 0800 [facility] Physical Exam - Constitutional Appears: Non-toxic, No Acute Distress - Head Exam Head Exam: ATRAUMATIC, NORMOCEPHALIC - Eye Exam Eye Exam: EOMI. absent: Scleral icterus - ENT Exam ENT Exam: Mucous Membranes Moist, Normal External Ear Exam - Neck Exam Neck exam: Positive for: Full Rom - Respiratory Exam Respiratory Exam: NORMAL BREATHING PATTERN. absent: Accessory Muscle Use, Respiratory Distress - GI/Abdominal Exam GI & Abdominal Exam: Soft, Tenderness (RUQ). absent: Distended, Firm, Guarding , Rebound, Rigid - Extremities Exam Extremities exam: Negative for: calf tenderness, pedal edema - Neurological Exam Neurological exam: Alert, Oriented x3 - Psychiatric Exam Psychiatric exam: Normal Affect, Normal Mood - Skin Skin Exam: Dry, Normal Color, Warm Results - Vital Signs Recent Vital Signs: Last Vital Signs Temp 97.8 F 10/07/17 02:00 Pulse 18 L 10/07/17 02:00 Resp 18 10/07/17 02:00 BP 98/65 L 10/07/17 02:00 Pulse Ox 100 10/07/17 01:45 - Labs Result Diagrams: 10/07/17 05:30 10/07/17 05:30 Labs: Laboratory Results - last 24 hr 10/07/17 10/07/17 05:30 05:30 WBC 5.0 RBC 4.15 Hgb 12.6 Hct 37.6 MCV 90.6 MCH 30.4 MCHC 33.5 RDW 13.5 Plt Count 166 MPV 11.1 H Gran % 54.5 Lymph % (Auto) 29.9 [place] % (Auto) 12.4 H Eos % (Auto) 3.0 Baso % (Auto) 0.2 Gran # 2.72 Lymph # (Auto) 1.5 [place] # (Auto) 0.6 Eos # (Auto) 0.2 Baso # (Auto) 0.01 Sodium 142 Potassium 4.0 Chloride 106 Carbon Dioxide 26 Anion Gap 15 BUN 12 Creatinine 0.6 L Est GFR ( Amer) > 60 Est GFR (Non-Af Amer) > 60 Random Glucose 102 Calcium 8.9 Total Bilirubin 0.2 AST 28 ALT 33 Alkaline Phosphatase 81 Total Protein 7.4 Albumin 3.9 Globulin 3.5 Albumin/Globulin Ratio 1.1 - Imaging and Cardiology CT scan - abdomen Status: Image reviewed by me, Report reviewed by me US - abdomen Status: Image reviewed by me, Report reviewed by me Assessment & Plan - Assessment and Plan (Free Text) Assessment: 52F w. RUQ pain -CT/US reviewed -Will order NEAL -LUCO -IVF -d/w attending Sariah PGY3
[2017-10-07 08:24] VITALS: BP 103/67; PULSE 74; RESP 20; TEMP 97.7; O2SAT 96
[2017-10-07] MEDS ORDERED: cefTRIAXone 1 gm 1 GM/100 ML BAG IVPB SCH (10:00)
--- NOTE | 2017-10-07 10:30 | NM ---
PROCEDURE: Nuclear Medicine Hepatobiliary Scan HISTORY: r/o osiris COMPARISON: None available. TECHNIQUE: 6.8 mCi of technetium 99m Mebrofenin was administered intravenously. Planar images of the abdomen were obtained at 5 min intervals to 60 mins. Delayed images were also obtained. FINDINGS: LIVER: Timely and homogenous uptake. COMMON BILE DUCT: identified at 15 mins. GALLBLADDER: identified at 15 mins. SMALL BOWEL: Identified at 15 mins. IMPRESSION: Normal Hepatobiliary Scan. The cystic duct is patent.
[2017-10-07] MEDS ORDERED: metroNIDAZOLE IV 500 mg/100 ml 500 MG/100 ML BAG IVPB SCH (11:00)
[2017-10-07] MEDS ORDERED: Morphine 2 mg/2 mL syringe IVP PRN (13:31)
--- NOTE | 2017-10-07 14:07 | CP.PCM.DIS ---
<Bailey Yeager - Last Filed: 10/07/17 15:44> Provider - Provider Date of Admission: 10/07/17 00:40 Attending physician: Maribel Hernandez MD Primary care physician: NO PRIMARY CARE PROVIDER Consults: GI: Mejia Surgery: [facility] Time Spent in preparation of Discharge (in minutes): 45 Hospital Course - Lab Results Lab Results: Most Recent Lab Values WBC 5.0 10^3/ul (4.5-11.0) 10/07/17 05:30 RBC 4.15 10^6/uL (3.5-6.1) 10/07/17 05:30 Hgb 12.6 g/dL (12.0-16.0) 10/07/17 05:30 Hct 37.6 % (36.0-48.0) 10/07/17 05:30 MCV 90.6 fl (80.0-105.0) 10/07/17 05:30 MCH 30.4 pg (25.0-35.0) 10/07/17 05:30 MCHC 33.5 g/dl (31.0-37.0) 10/07/17 05:30 RDW 13.5 % (11.5-14.5) 10/07/17 05:30 Plt Count 166 10^3/uL (120.0-450.0) 10/07/17 05:30 MPV 11.1 fl (7.0-11.0) H 10/07/17 05:30 Gran % 54.5 % (50.0-68.0) 10/07/17 05:30 Lymph % (Auto) 29.9 % (22.0-35.0) 10/07/17 05:30 [place] % (Auto) 12.4 % (1.0-6.0) H 10/07/17 05:30 Eos % (Auto) 3.0 % (1.5-5.0) 10/07/17 05:30 Baso % (Auto) 0.2 % (0.0-3.0) 10/07/17 05:30 Gran # 2.72 (1.4-6.5) 10/07/17 05:30 Lymph # (Auto) 1.5 (1.2-3.4) 10/07/17 05:30 [place] # (Auto) 0.6 (0.1-0.6) 10/07/17 05:30 Eos # (Auto) 0.2 (0.0-0.7) 10/07/17 05:30 Baso # (Auto) 0.01 K/mm3 (0.0-2.0) 10/07/17 05:30 PT 12.1 SECONDS (9.4-12.5) 10/06/17 20:45 INR 1.06 (0.93-1.08) 10/06/17 20:45 APTT 27.2 Seconds (25.1-36.5) 10/06/17 20:45 Sodium 142 mmol/L (132-148) 10/07/17 05:30 Potassium 4.0 mmol/L (3.6-5.0) 10/07/17 05:30 Chloride 106 mmol/L (98-107) 10/07/17 05:30 Carbon Dioxide 26 mmol/L (21-33) 10/07/17 05:30 Anion Gap 15 (10-20) 10/07/17 05:30 BUN 12 mg/dL (7-21) 10/07/17 05:30 Creatinine 0.6 mg/dl (0.7-1.2) L 10/07/17 05:30 Est GFR ( Amer) > 60 10/07/17 05:30 Est GFR (Non-Af Amer) > 60 10/07/17 05:30 Random Glucose 102 mg/dL (70-110) 10/07/17 05:30 Hemoglobin A1c 5.8 % (4.2-6.5) 10/06/17 20:45 Calcium 8.9 mg/dL (8.4-10.5) 10/07/17 05:30 Total Bilirubin 0.2 mg/dL (0.2-1.3) 10/07/17 05:30 AST 28 U/L (14-36) 10/07/17 05:30 ALT 33 U/L (7-56) 10/07/17 05:30 Alkaline Phosphatase 81 U/L (38-126) 10/07/17 05:30 Lactate Dehydrogenase 512 U/L (333-699) 10/06/17 20:45 Total Creatine Kinase 77 U/L (35-230) 10/06/17 20:45 Troponin I < 0.01 ng/mL 10/06/17 20:45 Total Protein 7.4 g/dL (5.8-8.3) 10/07/17 05:30 Albumin 3.9 g/dL (3.0-4.8) 10/07/17 05:30 Globulin 3.5 gm/dL 10/07/17 05:30 Albumin/Globulin Ratio 1.1 (1.1-1.8) 10/07/17 05:30 Amylase 69 U/L (35-125) 10/06/17 20:45 Lipase 117 U/L (23-300) 10/06/17 20:45 Urine Color Yellow (YELLOW) 10/06/17 20:10 Urine Appearance Clear (CLEAR) 10/06/17 20:10 Urine pH 7.0 (4.7-8.0) 10/06/17 20:10 Ur Specific [place] 1.015 (1.005-1.035) 10/06/17 20:10 Urine Protein Negative mg/dL (<30 mg/dL) 10/06/17 20:10 Urine Glucose (UA) Negative mg/dL (NEGATIVE) 10/06/17 20:10 Urine Ketones Negative mg/dL (NEGATIVE) 10/06/17 20:10 Urine Blood Negative (NEGATIVE) 10/06/17 20:10 Urine Nitrate Negative (NEGATIVE) 10/06/17 20:10 Urine Bilirubin Negative (NEGATIVE) 10/06/17 20:10 Urine Urobilinogen 0.2 E.U./dL (<1 E.U./dL) 10/06/17 20:10 Ur Leukocyte Esterase Small Gustavo/uL (NEGATIVE) H 10/06/17 20:10 Urine RBC Negative /hpf (0-2) 10/06/17 20:10 Urine WBC 1 - 3 /hpf (0-6) 10/06/17 20:10 Ur Epithelial Cells 3 - 4 /hpf (0-5) 10/06/17 20:10 Urine Bacteria Few (NEG) 10/06/17 20:10 - Hospital Course Hospital Course: Upon Admission: "52 year old Marshallese-speaking female with a PMHx of HTN, Depression, and Insomnia who presents complaining of 8/10 RUQ pain that started around 3pm . Patient was at rest when it started. She describes it as constant and non- radiating. She is unable to give a description of the quality of the pain. She took omeprazole and Pepto-Bismol to relieve her symptoms without success. She states the pain is worse with food. Associated with her abdominal pain is nausea, subjective fever, chills, and one episode of non-bloody/non-bilious vomiting. Patient denies any changes in bowel habits, urinary symptoms, chest pain, or shortness of breath." CT Abd/Pelvis on admission showed pericholecystic fluid vs gallbladder wall thickening and Gallbladder u/s on admission showed slightly dialted CBD 6.3mm of uncertain etiology. Patient admitted to med/surg and GI Dr. Mejia and Surgery Dr. [facility] were consulted. Patient was started on Rocephin, Flagyl and kept NPO on fluids. The next day patient had a HIDA scan that was negative. Patient's diet was advanced and symptoms resolved. On day of discharge patient was deemed clinically stable for discharge. 1) RUQ pain: resolved- patient to follow up with Dr. [facility] outpatient for elective cholecystectomy 2) Hx of HTN: continue home meds Upon Discharge Patient stable for discharge home. Patient to resume home medications. Patient to follow up with PMD within 7 days and to follow up with General surgery Dr. [facility] for elective cholecystectomy. If symptoms persist or worsen patient to visit ED immediately. Instructions discussed in detail with patient who understands and agrees Discharge Exam - Head Exam Head Exam: ATRAUMATIC, NORMOCEPHALIC - Eye Exam Eye Exam: EOMI, Normal appearance, PERRL. absent: Conjunctival injection, Scleral icterus Pupil Exam: NORMAL ACCOMODATION, PERRL - ENT Exam ENT Exam: Mucous Membranes Moist - Neck Exam Neck exam: Full Rom - Respiratory Exam Respiratory Exam: Clear to PA & Lateral, NORMAL BREATHING PATTERN, UNREMARKABLE. absent: Accessory Muscle Use, Rales, Rhonchi, Wheezes, Respiratory Distress - Cardiovascular Exam Cardiovascular Exam: REGULAR RHYTHM, RRR, +S1, +S2 - GI/Abdominal Exam GI & Abdominal Exam: Normal Bowel Sounds. absent: Firm, Guarding, Rigid - Rectal Exam Rectal Exam: Deferred - Extremities Exam Extremities exam: normal capillary refill, normal inspection, pedal pulses present - Back Exam Back exam: NORMAL INSPECTION. absent: rash noted - Neurological Exam Neurological exam: Alert, CN II-XII Intact, Normal Gait, Oriented x3 - Psychiatric Exam Psychiatric exam: Normal Affect, Normal Mood - Skin Skin Exam: Dry, Intact, Normal Color, Warm Discharge Plan - Discharge Medications Prescriptions: amLODIPine [Norvasc] 5 mg PO DAILY #30 tab Atenolol 50 mg PO DAILY #30 - Follow Up Plan Condition: GOOD Disposition: HOME/ ROUTINE Instructions: Acute Abdomen (Belly Pain), Adult (DC), Nausea and Vomiting, Adult (DC), Gallstones (DC) Additional Instructions: Patient stable for discharge home. Patient to resume home medications. Patient to follow up with PMD within 7 days and to follow up with General surgery Dr. [facility] for elective cholecystectomy. If symptoms persist or worsen patient to visit ED immediately. Instructions discussed in detail with patient who understands and agrees. Referrals: PCPKUN [Primary Care Provider] - <Maribel Hernandez - Last Filed: 10/07/17 17:01> Provider - Provider Date of Admission: 10/07/17 00:40 Attending physician: Maribel Hernandez MD Primary care physician: KUN PRIMARY CARE PROVIDER Hospital Course - Lab Results Lab Results: Most Recent Lab Values WBC 5.0 10^3/ul (4.5-11.0) 10/07/17 05:30 RBC 4.15 10^6/uL (3.5-6.1) 10/07/17 05:30 Hgb 12.6 g/dL (12.0-16.0) 10/07/17 05:30 Hct 37.6 % (36.0-48.0) 10/07/17 05:30 MCV 90.6 fl (80.0-105.0) 10/07/17 05:30 MCH 30.4 pg (25.0-35.0) 10/07/17 05:30 MCHC 33.5 g/dl (31.0-37.0) 10/07/17 05:30 RDW 13.5 % (11.5-14.5) 10/07/17 05:30 Plt Count 166 10^3/uL (120.0-450.0) 10/07/17 05:30 MPV 11.1 fl (7.0-11.0) H 10/07/17 05:30 Gran % 54.5 % (50.0-68.0) 10/07/17 05:30 Lymph % (Auto) 29.9 % (22.0-35.0) 10/07/17 05:30 [place] % (Auto) 12.4 % (1.0-6.0) H 10/07/17 05:30 Eos % (Auto) 3.0 % (1.5-5.0) 10/07/17 05:30 Baso % (Auto) 0.2 % (0.0-3.0) 10/07/17 05:30 Gran # 2.72 (1.4-6.5) 10/07/17 05:30 Lymph # (Auto) 1.5 (1.2-3.4) 10/07/17 05:30 [place] # (Auto) 0.6 (0.1-0.6) 10/07/17 05:30 Eos # (Auto) 0.2 (0.0-0.7) 10/07/17 05:30 Baso # (Auto) 0.01 K/mm3 (0.0-2.0) 10/07/17 05:30 PT 12.1 SECONDS (9.4-12.5) 10/06/17 20:45 INR 1.06 (0.93-1.08) 10/06/17 20:45 APTT 27.2 Seconds (25.1-36.5) 10/06/17 20:45 Sodium 142 mmol/L (132-148) 10/07/17 05:30 Potassium 4.0 mmol/L (3.6-5.0) 10/07/17 05:30 Chloride 106 mmol/L (98-107) 10/07/17 05:30 Carbon Dioxide 26 mmol/L (21-33) 10/07/17 05:30 Anion Gap 15 (10-20) 10/07/17 05:30 BUN 12 mg/dL (7-21) 10/07/17 05:30 Creatinine 0.6 mg/dl (0.7-1.2) L 10/07/17 05:30 Est GFR ( Amer) > 60 10/07/17 05:30 Est GFR (Non-Af Amer) > 60 10/07/17 05:30 Random Glucose 102 mg/dL (70-110) 10/07/17 05:30 Hemoglobin A1c 5.8 % (4.2-6.5) 10/06/17 20:45 Calcium 8.9 mg/dL (8.4-10.5) 10/07/17 05:30 Total Bilirubin 0.2 mg/dL (0.2-1.3) 10/07/17 05:30 AST 28 U/L (14-36) 10/07/17 05:30 ALT 33 U/L (7-56) 10/07/17 05:30 Alkaline Phosphatase 81 U/L (38-126) 10/07/17 05:30 Lactate Dehydrogenase 512 U/L (333-699) 10/06/17 20:45 Total Creatine Kinase 77 U/L (35-230) 10/06/17 20:45 Troponin I < 0.01 ng/mL 10/06/17 20:45 Total Protein 7.4 g/dL (5.8-8.3) 10/07/17 05:30 Albumin 3.9 g/dL (3.0-4.8) 10/07/17 05:30 Globulin 3.5 gm/dL 10/07/17 05:30 Albumin/Globulin Ratio 1.1 (1.1-1.8) 10/07/17 05:30 Amylase 69 U/L (35-125) 10/06/17 20:45 Lipase 117 U/L (23-300) 10/06/17 20:45 Urine Color Yellow (YELLOW) 10/06/17 20:10 Urine Appearance Clear (CLEAR) 10/06/17 20:10 Urine pH 7.0 (4.7-8.0) 10/06/17 20:10 Ur Specific [place] 1.015 (1.005-1.035) 10/06/17 20:10 Urine Protein Negative mg/dL (<30 mg/dL) 10/06/17 20:10 Urine Glucose (UA) Negative mg/dL (NEGATIVE) 10/06/17 20:10 Urine Ketones Negative mg/dL (NEGATIVE) 10/06/17 20:10 Urine Blood Negative (NEGATIVE) 10/06/17 20:10 Urine Nitrate Negative (NEGATIVE) 10/06/17 20:10 Urine Bilirubin Negative (NEGATIVE) 10/06/17 20:10 Urine Urobilinogen 0.2 E.U./dL (<1 E.U./dL) 10/06/17 20:10 Ur Leukocyte Esterase Small Gustavo/uL (NEGATIVE) H 10/06/17 20:10 Urine RBC Negative /hpf (0-2) 10/06/17 20:10 Urine WBC 1 - 3 /hpf (0-6) 10/06/17 20:10 Ur Epithelial Cells 3 - 4 /hpf (0-5) 10/06/17 20:10 Urine Bacteria Few (NEG) 10/06/17 20:10 Attending/Attestation - Attestation I have personally seen and examined this patient.: Yes I have fully participated in the care of the patient.: Yes I have reviewed all pertinent clinical information, including history, physical exam and plan: Yes Notes (Text): 10/07/17 16:55 52 year old female with past medical history of hypertension who presented with complaint of right upper quadrant pain. She had a CT abd/pelvis which showed pericholecystic fluid vs gallbladder wall thickening. She had gallbladder ultrasound which showed slightly dilated CBD at 6.3 mm. This was followed up with HIDA scan which was negative. She was seen by surgery who recommended outpatient cholecystectomy. Her abdominal pain improved today and her diet was advanced which she tolerated. Patient is discharged home today to follow up with her pmd. Follow up with surgery for elective cholecystectomy. Maribel Hernandez MD Hospitalist.
--- NOTE | 2017-10-07 21:50 | CON ---
DATE: 10/07/2017 REASON FOR CONSULTATION: I have been asked to see this 52-year-old female with history of depression and hypertension who was admitted to the hospital with right upper quadrant abdominal pain. She currently denies any abdominal pain at this point. Pain is apparently made worse after eating. There is some nausea and one episode of vomiting. CT scan of the abdomen performed in the emergency room showed some mild pericholecystic fluid. PAST MEDICAL HISTORY: Notable for hypertension, depression, and insomnia. PAST SURGICAL HISTORY: Unremarkable. PHYSICAL EXAMINATION: GENERAL: Middle-aged female lying in bed, in no acute distress. VITAL SIGNS: Reveal temperature of 97.7, blood pressure 103/67, heart rate 74. HEENT: Reveals sclerae to be white. Conjunctivae pink. NECK: Supple. CHEST: Lungs are clear. HEART: Reveals regular rate and rhythm. ABDOMEN: Soft, nontender. No mass. EXTREMITIES: Show no edema. LABORATORY DATA: Revealed white blood cell count of 5, hemoglobin of 12.6. Chemistries reveal normal electrolytes. AST, ALT, alk phos were all normal. Ultrasound of the abdomen showed no gallstones. Hepatobiliary scan is normal with a cystic patent duct. IMPRESSION: Right upper quadrant abdominal pain with negative hepatobiliary scan. Patient's abdominal pain has resolved. The etiology of the pericholecystic fluid is unclear. I do not believe this is an acalculous cholecystitis. RECOMMENDATIONS: 1. Advance diet as tolerated. 2. Patient is going to be discharged home with outpatient followup. George Mejia MD : 10/07/2017 10:36:45
--- NOTE | 2017-10-08 08:48 | CARD ---
APPROVED REPORT EKG Measurement Heart [id number] <Conclusion> Normal sinus rhythm Normal ECG
== END 2017-10-07 18:33 | disposition home or self-care (01) ==
LOC: ED 19:18 → ERH 10-07 00:40 → 3RSO 10-07 02:06
PROVIDERS: ADMIT Internal Medicine; ATTEND Internal Medicine
DX: R10.11 Right upper quadrant pain (principal); I10 Essential (primary) hypertension; K56.7 Ileus, unspecified; G47.00 Insomnia, unspecified; F32.9 Major depressive disorder, single episode, unspecified; M81.0 Age-related osteoporosis without current pathological fracture
CPT/HCPCS: 74177; 76705; 78227; 80053; 81001; 82150; 82550; 83036; 83615; 83690; 84484; 85025; 85610; 85730; 87040; 87086; 93005; 96365; 96367; 96375; 96376; 99284; A9537; C9113; G0378; J0696; J2270; J2405; J7040; Q9967

== ENCOUNTER 2018-04-15 17:23 | Emergency (ER) | payer OTHER ==
[2018-04-15 17:24] VITALS: BMI 32.0
[2018-04-15 18:04] VITALS: RESP 18; TEMP 98.9
--- NOTE | 2018-04-15 18:30 | ED PDOC ---
Arrival/HPI - General Historian: Patient - History of Present Illness Narrative History of Present Illness (Text): 04/15/18 18:27 52 yo F w/ PMH of HTN, presents c/o difficulty sleeping. States that she normally takes clonazepam 0.5 mg to help her sleep and she ran out of the med ication ~1 week ago. States that she follows up at [facility], was receiving the Rx for clonazepam there regularly. She adds that the new doctor at [facility] told her to see the psychiatrist in order to receive further refills. Patient states that she tried to see a psychiatrist at a clinic and waited for hours and did not see one, she adds that she has an appointment with a psychiatrist at the same clinic 1 week from today. States that she went back to [facility] clinic today and was advised to go to the ER for psych eval. Otherwise she denies anxiety, depression, hallucinations, SI, HI, headache, fever, N/V, CP or abdominal pain. Has no other complaints. PMD Clinic <Debbie Randle PA-C - Last Filed: 04/15/18 20:29> <Delfino Shaver - Last Filed: 04/15/18 20:49> - General Chief Complaint: Psychiatric Evaluation Time Seen by Provider: 04/15/18 18:00 Past Medical History - Infectious Disease Hx of Infectious Diseases: None - Tetanus Immunization Tetanus Immunization: Unknown - Reproductive Menopause: Yes - Past Medical History Past Medical History: Non-Contributing - Cardiac Hx Hypertension: Yes - Pulmonary Hx Respiratory Disorders: No - Neurological Hx Neurological Disorder: Yes - HEENT Hx HEENT Disorder: No - Renal Hx Renal Disorder: No - Endocrine/Metabolic Hx Endocrine Disorders: No - Hematological/Oncological Hx Blood Disorders: No - Integumentary Hx Dermatological Disorder: No - Musculoskeletal/Rheumatological Hx Osteoporosis: Yes - Gastrointestinal Hx Gastrointestinal Disorders: No - Genitourinary/Gynecological Hx Genitourinary Disorders: No - Psychiatric Hx Anxiety: Yes Hx Depression: Yes Hx Substance Use: No - Past Surgical History Past Surgical History: No Previous - Anesthesia Hx Anesthesia: No Hx Anesthesia Reactions: No Hx Malignant Hyperthermia: No - Suicidal Assessment Feels Threatened In Home Enviroment: No <Debbie Randle PA-C - Last Filed: 04/15/18 20:29> Family/Social History Family/Social History: No Known Family HX Smoking Status: Never Smoked Hx Alcohol Use: No Hx Substance Use: No Hx Substance Use Treatment: No <Debbie Randle PA-C - Last Filed: 04/15/18 20:29> Allergies/Home Meds <Debbie Randle PA-C - Last Filed: 04/15/18 20:29> <Delfino Shaver - Last Filed: 04/15/18 20:49> Allergies/Adverse Reactions: Allergies No Known Allergies Allergy (Verified 04/14/17 11:21) Home Medications: Home Meds Medication Instructions Recorded Confirmed Clonazepam [Klonopin] 0.5 mg PO HS 04/15/18 04/15/18 Review of Systems - Review of Systems Constitutional: Other (difficulty sleeping). absent: Fatigue, Fevers Respiratory: absent: SOB, Cough Cardiovascular: absent: Chest Pain, Palpitations Gastrointestinal: absent: Abdominal Pain, Diarrhea, Vomiting Genitourinary Female: absent: Dysuria, Frequency, Hematuria Musculoskeletal: absent: Arthralgias, Back Pain Skin: absent: Rash, Pruritis Neurological: absent: Headache, Dizziness, Focal Weakness Psychiatric: absent: Anxiety, Depression, Suicidal Ideation <Debbie Randle PA-C - Last Filed: 04/15/18 20:29> Physical Exam Vital Signs Temp Pulse Resp BP Pulse Ox 04/15/18 17:49 98.9 F 90 18 128/79 98 Temperature: Afebrile Blood Pressure: Normal Pulse: Regular Respiratory Rate: Normal Appearance: Positive for: Well-Appearing, Non-Toxic, Comfortable Pain Distress: None Mental Status: Positive for: Alert and Oriented X 3 - Systems Exam Head: Present: Atraumatic, Normocephalic Pupils: Present: PERRL Extroacular Muscles: Present: EOMI Conjunctiva: Present: Normal Mouth: Present: Moist Mucous Membranes Neck: Present: Normal Range of Motion Respiratory/Chest: Present: Clear to Auscultation, Good Air Exchange. No: Respiratory Distress, Accessory Muscle Use Cardiovascular: Present: Regular Rate and Rhythm, Normal S1, S2. No: Murmurs Abdomen: No: Tenderness, Distention, Peritoneal Signs Back: Present: Normal Inspection Upper Extremity: Present: Normal Inspection. No: Cyanosis, Edema Lower Extremity: Present: Normal Inspection. No: Edema Neurological: Present: GCS=15, CN II-XII Intact, Speech Normal, Motor Func Grossly Intact, Normal Sensory Function Skin: Present: Warm, Dry, Normal Color. No: Rashes Psychiatric: Present: Alert, Oriented x 3, Normal Insight, Normal Concentration, Normal Affect, Normal Mood. No: Anxious, Agitated, Depressed Mood <Debbie Randle PA-C - Last Filed: 04/15/18 20:29> Vital Signs Temp Pulse Resp BP Pulse Ox 04/15/18 20:18 85 18 124/79 100 04/15/18 17:49 98.9 F 90 18 128/79 98 <Delfino Shaver - Last Filed: 04/15/18 20:49> Medical Decision Making ED Course and Treatment: 04/15/18 18:30 Plan : - Labs - EKG - CXR - UA - Urine cx - UDS - PES evaluation On [place] HYDRATE THICKENER OPERATOR aware, patient was regularly receiving Rx for clonazepam 0.5 mg by [facility] CINDER CRUSHER OPERATOR with last Rx was written on 01/28/19 by her for 30 tabs, she then received her last refill on 02/28/[address] Green. CXR : NAD, as read by ADELE EKG : NSR at 78 bpm, (-) acute ST changes, as read by ADELE. Labs reviewed. Patient is medically cleared for crisis evaluation. Patient is seen and evaluated by crisis. As per crisis evaluation, decision made for outpatient follow up as per Dr. Hernandez. Patient advised to try otc melatonin or benadryl to help her sleep, advised that these are non-Rx medication sleep aids. - RAD Interpretation Radiology Orders: 04/15/18 18:13 CHEST PORTABLE [RAD] Stat <Debbie Randle PA-C - Last Filed: 04/15/18 20:29> - Lab Interpretations Lab Results: 04/15/18 18:41 04/15/18 18:41 Lab Results 04/15/18 18:41: Alcohol, Quantitative < 10 04/15/18 18:41: Sodium 142, Potassium 4.0, Chloride 102, Carbon Dioxide 32, Anion Gap 12, BUN 15, Creatinine 0.8, Est GFR ( Amer) > 60, Est GFR (Non- Af Amer) > 60, Random Glucose 106, Calcium 9.2, Magnesium 2.0, Total Bilirubin 0.2, AST 33, ALT 26, Alkaline Phosphatase 82, Total Protein 8.2, Albumin 4.5, Globulin 3.7, Albumin/Globulin Ratio 1.2 04/15/18 18:41: Urine Color Light yellow, Urine Appearance Clear, Urine pH 8.5, Ur Specific [place] 1.015, Urine Protein Trace H, Urine Glucose (UA) Negative, Urine Ketones Negative, Urine Blood Negative, Urine Nitrate Negative, Urine Bilirubin Negative, Urine Urobilinogen 0.2, Ur Leukocyte Esterase Large H, Urine RBC Negative, Urine WBC 5 - 10, Ur Epithelial Cells 3 - 4, Urine Bacteria Trace 04/15/18 18:41: WBC 5.2, RBC 4.32, Hgb 13.3, Hct 39.2, MCV 90.7, MCH 30.8, MCHC 33.9, RDW 13.2, Plt Count 184, MPV 11.2 H, Gran % 56.7, Lymph % (Auto) 26.6, [place] % (Auto) 12.3 H, Eos % (Auto) 3.8, Baso % (Auto) 0.6, Gran # 2.96, Lymph # (Auto) 1.4, [place] # (Auto) 0.6, Eos # (Auto) 0.2, Baso # (Auto) 0.03 - RAD Interpretation Radiology Orders: 04/15/18 18:13 CHEST PORTABLE [RAD] Stat <Delfino Shaver - Last Filed: 04/15/18 20:49> - PA / CINDER CRUSHER OPERATOR / Resident Statement ARIANNA has reviewed & agrees with the documentation as recorded. ARIANNA has examined the patient and agrees with the treatment plan. <Debbie Randle PA-C - Last Filed: 04/15/18 20:29> - PA / CINDER CRUSHER OPERATOR / Resident Statement ARIANNA has reviewed & agrees with the documentation as recorded. <Delfino Shaver - Last Filed: 04/15/18 20:49> Disposition/Present on Arrival - Present on Arrival Any Indicators Present on Arrival: No History of DVT/PE: No History of Uncontrolled Diabetes: No Urinary Catheter: No History of Decub. Ulcer: No History Surgical Site Infection Following: None - Disposition Have Diagnosis and Disposition been Completed?: Yes Disposition Time: 20:00 Patient Plan: Discharge <Debbie Randle PA-C - Last Filed: 04/15/18 20:29> <Delfino Shaver - Last Filed: 04/15/18 20:49> - Disposition Diagnosis: Difficulty sleeping Disposition: HOME/ ROUTINE Condition: STABLE Discharge Instructions (ExitCare): Bedtime Struggles Print Language: GREEK Additional Instructions: Thank you for letting us take care of you today. You were treated for difficulty sleeping. The emergency medical care you received today was directed at your acute symptoms. Try over the counter melatonin or benadryl. Return to the Emergency Department if your symptoms worsen, do not improve, or if you have any other problems. Please contact your doctor at the clinic in 2 days for re-evaluation and follow up. Bring any paperwork you were given at discharge with you along with any medications you are taking to your follow up visit. Our treatment cannot replace ongoing medical care by a primary care provider (PCP) outside of the emergency department. Thank you for allowing the [facility] team to be part of your care today. Forms: [employer] ([place])
[2018-04-15 18:47] LABS: BASO # 0.03 K/mm3 (0.0-2.0); BASO % 0.6 % (0.0-3.0); EOS # 0.2 (0.0-0.7); EOS % 3.8 % (1.5-5.0); GRAN # 2.96 (1.4-6.5); GRAN % 56.7 % (50.0-68.0); HEMOGLOBIN 13.3 g/dL (12.0-16.0); LYMPH # 1.4 (1.2-3.4); LYMPH % 26.6 % (22.0-35.0); MEAN CELL VOLUME 90.7 fl (80.0-105.0); MEAN CORPUSCULAR HEMOGLOBIN 30.8 pg (25.0-35.0); MEAN CORPUSCULAR HGB CONC 33.9 g/dl (31.0-37.0); MEAN PLATELET VOLUME 11.2 fl (7.0-11.0); MONO # 0.6 (0.1-0.6); MONO % 12.3 % (1.0-6.0); RBC 4.32 10^6/uL (3.5-6.1); RED CELL DISTRIBUTION WIDTH 13.2 % (11.5-14.5); WHITE BLOOD COUNT 5.2 10^3/uL (4.5-11.0)
[2018-04-15 18:51] LABS: PH,URINE 8.5 (4.7-8.0); URINE BILIRUBIN NEGATIVE (NEGATIVE); URINE BLOOD NEGATIVE (NEGATIVE); URINE GLUCOSE (UA) NEGATIVE (NEGATIVE); URINE LEUKOCYTE ESTERASE LARGE Leu/uL (NEGATIVE); URINE PROTEIN TRACE mg/dL (<30 mg/dL); URINE UROBILINOGEN 0.2 E.U./dL (<1 E.U./dL)
[2018-04-15 18:52] LABS: URINE APPEARANCE CLEAR (CLEAR); URINE COLOR LIGHT YELLOW (YELLOW)
[2018-04-15 18:55] LABS: URINE BACTERIA TRACE (NEG); URINE RBC NEGATIVE /hpf (0-2)
[2018-04-15 18:57] LABS: ALB/GLOB RATIO 1.2 (1.1-1.8); ALBUMIN 4.5 g/dL (3.0-4.8); ALT/SGPT 26 U/L (7-56); AST/SGOT 33 U/L (14-36); BLOOD UREA NITROGEN 15 mg/dL (7-21); CALCIUM 9.2 mg/dL (8.4-10.5); GFR NON-AFRICAN AMERICAN > 60
[2018-04-15 20:19] VITALS: BP 124/79; PULSE 85; O2SAT 100
[2018-04-15 21:14] LABS: BARBITURATES, UR NEGATIVE (NEGATIVE); BENZODIAZEPINES, UR NEGATIVE (NEGATIVE); OPIATES, UR NEGATIVE (NEGATIVE); PHENCYCLIDINE, UR NEGATIVE (NEGATIVE)
--- NOTE | 2018-04-16 08:22 | RAD ---
Date of service: 04/15/2018 HISTORY: psych eval COMPARISON: 10/13/2015 FINDINGS: LUNGS: No active pulmonary disease. PLEURA: No significant pleural effusion identified, no pneumothorax apparent. CARDIOVASCULAR: No aortic atherosclerotic calcification present. Normal cardiac size. No pulmonary vascular congestion. OSSEOUS STRUCTURES: No significant abnormalities. VISUALIZED UPPER ABDOMEN: Normal. OTHER FINDINGS: None. IMPRESSION: No active disease.
--- NOTE | 2018-04-16 15:38 | CARD ---
APPROVED REPORT Date of service: 04/15/2018 EKG Measurement Heart [id number] <Conclusion> Normal sinus rhythm Normal ECG
== END 2018-04-15 20:19 | disposition home or self-care (01) ==
LOC: ED 17:23
DX: G47.9 Sleep disorder, unspecified (principal); I10 Essential (primary) hypertension

== ENCOUNTER 2018-08-08 13:28 | Emergency (ER) | payer OTHER | END 2018-08-08 17:46 | disposition home or self-care (01) | LOC: ED 13:28 ==

== ENCOUNTER 2018-08-20 08:31 | Outpatient (CLI) | payer OTHER | END 2018-08-20 08:32 | disposition home or self-care (01) | LOC: LAB 08:31 ==

== ENCOUNTER 2018-08-20 08:57 | Emergency (ER) | payer OTHER | END 2018-08-20 12:58 | disposition home or self-care (01) | LOC: ED 08:57 ==

== ENCOUNTER 2018-08-26 14:20 | Inpatient (IN) | payer OTHER ==
[2018-08-26 14:40] VITALS: BMI 31.1
--- NOTE | 2018-08-26 15:02 | ED PDOC ---
Arrival/HPI - General Chief Complaint: Back Pain Time Seen by Provider: 08/26/18 14:21 Historian: Patient - History of Present Illness Narrative History of Present Illness (Text): 08/26/18 14:59 A 53 year old female, whose past medical history includes bronchitis, UTI, hypertension, and diabetes, presents to the emergency department complaining of fever and back pain for the past month. Patient states she was seen in the ER f or back pain and notes she had an MRI which showed she has an infection to her back. Patient notes she currently has back pain, decreased appetite, and subjective fever. Patient notes her back pain worsens with movement. Patient notes she was prescribed an antibiotic treatment by her primary care doctor in the clinic which she stopped taking after 3 days due to side effects of vomiting and nausea. Patient states she saw her primary care doctor today who sent her to the ER for her symptoms to be evaluated. Patient notes she took 6 antibiotic pills - 2 pills daily over 3 days. Patient denies any nausea, vomiting, diarrhea, urine output, dysuria, no frequency, chest pain, palpitations, or any other complaints. No PMD Time/Duration: > month Symptom Onset: Gradual Symptom Course: Unchanged Activities at Onset: Light Context: Home Past Medical History - Provider Review Nursing Documentation Reviewed: Yes - Infectious Disease Hx of Infectious Diseases: None - Tetanus Immunization Tetanus Immunization: Unknown - Past Medical History Past Medical History: Non-Contributing - Cardiac Hx Hypertension: Yes - Pulmonary Hx Respiratory Disorders: No - Neurological Hx Neurological Disorder: Yes - HEENT Hx HEENT Disorder: No - Renal Hx Renal Disorder: No - Endocrine/Metabolic Hx Endocrine Disorders: No - Hematological/Oncological Hx Blood Disorders: No - Integumentary Hx Dermatological Disorder: No - Musculoskeletal/Rheumatological Hx Osteoporosis: Yes - Gastrointestinal Hx Gastrointestinal Disorders: No - Genitourinary/Gynecological Hx Genitourinary Disorders: No - Psychiatric Hx Anxiety: Yes Hx Depression: Yes Hx Substance Use: No - Past Surgical History Past Surgical History: No Previous - Anesthesia Hx Anesthesia: No Hx Anesthesia Reactions: No Hx Malignant Hyperthermia: No - Suicidal Assessment Feels Threatened In Home Enviroment: No Family/Social History - Physician Review Nursing Documentation Reviewed: Yes Family/Social History: No Known Family HX Smoking Status: Never Smoked Hx Alcohol Use: No Hx Substance Use: No Hx Substance Use Treatment: No Allergies/Home Meds Allergies/Adverse Reactions: Allergies shellfish derived Allergy (Verified 08/20/18 09:10) ANAPHYLAXIS Home Medications: Home Meds Medication Instructions Recorded Confirmed Clonazepam [Klonopin] 0.5 mg PO HS 04/15/18 08/26/18 Atenolol [Tenormin] 50 mg PO DAILY 08/20/18 08/26/18 Review of Systems - Physician Review All systems were reviewed & negative as marked: Yes - Review of Systems Constitutional: Fevers (subjective fever) Cardiovascular: absent: Chest Pain, Palpitations Gastrointestinal: Appetite Changes (decreased appetite). absent: Diarrhea, Nausea, Vomiting Genitourinary Female: absent: Frequency, Urine Output Changes Musculoskeletal: Back Pain Physical Exam - Physical Exam Narrative Physical Exam (Text): 08/26/18 14:59 Gen: VS reviewed, alert, well developed, well nourished, nontoxic, mild distress. ENT: normal pharynx. Eye: EOMI, PERRL. Neck: no JVD, supple, no adenopathy. CV: regular rate, regular rhythm, no rubs, no murmur, no gallops, S1, S2, pulses equal and strong. Pulm: no distress, clear to auscultation, no wheeze, no rhonchi, breath sounds equal, no rales. Abd: soft, nontender, no guarding, no rebound, no rigidity, normal bowel sounds. Back: CVA tenderness to right back. Ext: no edema. Skin: good color, no rash, no cyanosis. Psych: responds appropriately to questions, normal affect. Neuro: oriented x 3, CN2-12 intact grossly, motor intact, sensation intact. Medical Decision Making ED Course and Treatment: 08/26/18 15:01 Impression: 53 year old female presenting to the emergency room complaining of fever and back pain. Plan: -- VBG -- CMP -- CBC -- IV fluids -- Blood culture -- Urine culture -- Urinalysis -- Reassess and disposition Prior Visits: Notes and results from previous visits were reviewed. Progress Notes: 08/26/18 17:[address] guillen to the hospitalist service, patient to be admitted for uti/pyrlonephritis, iv abx, persistent symptoms, failed outpt therapy. - RAD Interpretation Narrative RAD Interpretations (Text): 03/15/19 18:57 Procedure: Chest X-ray Dictator: Lv Self Impression: No acute findings related to/accounting for the clinical presentation. No significant interval change compare to the prior examinations. Mailroom Courier: Radiologist - Medication Orders Current Medication Orders: Sodium Chloride (Sodium Chloride 0.9%) 1,000 mls @ 150 mls/hr IV .Q6H40M [facility] - Scribe Statement The provider has reviewed the documentation as recorded by the Ramiroibbrigitte Rosario All medical record entries made by the Scribe were at my direction and personally dictated by me. I have reviewed the chart and agree that the record accurately reflects my personal performance of the history, physical exam, medical decision making, and the department course for this patient. I have also personally directed, reviewed, and agree with the discharge instructions and disposition. Disposition/Present on Arrival - Present on Arrival Any Indicators Present on Arrival: No History of DVT/PE: No History of Uncontrolled Diabetes: No Urinary Catheter: No History of Decub. Ulcer: No History Surgical Site Infection Following: None - Disposition Have Diagnosis and Disposition been Completed?: Yes Diagnosis: Pyelonephritis, unspecified Disposition: HOSPITALIZED Disposition Time: 17:10 Patient Plan: Admission Patient Problems: Current Active Problems Problem Status Onset Pyelonephritis, unspecified Acute Condition: GUARDED
[2018-08-26] MEDS ORDERED: Cefepime IV 2 gm in NS 2 GM/100 ML BAG IVPB STA (15:38)
[2018-08-26 16:00] LABS: BASO # 0.01 K/mm3 (0.0-2.0); BASO % 0.3 % (0.0-3.0); EOS # 0.1 (0.0-0.7); EOS % 3.6 % (1.5-5.0); HEMOGLOBIN 12.8 g/dL (12.0-16.0); LYMPH # 1.2 (1.2-3.4); LYMPH % 33.3 % (22.0-35.0); MEAN CELL VOLUME 91.4 fl (80.0-105.0); MEAN CORPUSCULAR HEMOGLOBIN 30.5 pg (25.0-35.0); MEAN CORPUSCULAR HGB CONC 33.4 g/dl (31.0-37.0); MEAN PLATELET VOLUME 11.4 fl (7.0-11.0); MONO # 0.4 (0.1-0.6); RBC 4.19 10^6/uL (3.5-6.1); RED CELL DISTRIBUTION WIDTH 13.5 % (11.5-14.5); URINE BILIRUBIN NEGATIVE (NEGATIVE); URINE BLOOD TRACE-INTACT (NEGATIVE); URINE GLUCOSE (UA) NEGATIVE (NEGATIVE); URINE LEUKOCYTE ESTERASE LARGE Leu/uL (NEGATIVE); URINE PROTEIN NEGATIVE mg/dL (<30 mg/dL); WHITE BLOOD COUNT 3.6 10^3/uL (4.5-11.0)
[2018-08-26 16:01] LABS: URINE APPEARANCE SLIGHT-CLOUDY (CLEAR); URINE COLOR YELLOW (YELLOW)
[2018-08-26 16:02] LABS: VENOUS BLOOD GAS BASE EXCESS 5.6 mmol/L (0.0-2.0); VENOUS BLOOD GAS PO2 47 mm/Hg (30-55); VENOUS BLOOD PH 7.36 (7.32-7.43)
[2018-08-26] MEDS: Sodium Chloride 0.9% 1,000 ML IV SCH ×3 (16:07→18:55)
[2018-08-26 16:09] LABS: URINE WBC TNTC /hpf (0-6)
[2018-08-26 16:14] LABS: ALB/GLOB RATIO 1.2 (1.1-1.8); ALBUMIN 4.3 g/dL (3.0-4.8); ALT/SGPT 28 U/L (7-56); AST/SGOT 37 U/L (14-36); BLOOD UREA NITROGEN 13 mg/dL (7-21); GFR NON-AFRICAN AMERICAN > 60; LIPASE 88 U/L (23-300)
--- NOTE | 2018-08-26 17:28 | RAD ---
Date of service: 08/26/2018 HISTORY: stones COMPARISON: 08/20/2018. CT abdomen and pelvis FINDINGS: BOWEL: Normal. No obstruction. No free air. BONES: Normal. OTHER FINDINGS: None. IMPRESSION: No acute findings related to/ accounting for the clinical presentation. No significant interval change compared to the prior examination(s).
[2018-08-26 18:09] VITALS: RESP 18
--- NOTE | 2018-08-26 19:04 | CP.PCM.CON ---
History of Present Illness - History of Present Illness History of Present Illness: Infectious Disease Consultation: August 26, 2018 53 yo female with fever and back pain for the past month. Recent in the ER for similar complaints on August 20, 2018. The patient PMHx includes bronchitis, UTI, hypertension, and diabetes. She was given a fluoroquinolone for treatment. She could not tolerate doses of the antibiotic after the 3rd day where she had nausea and vomiting. Cultures of the urine from the August 20, 2018, ER visit were negative. The patient has right sided flank pain. Currently afebrile. PMHx: HTN, UTI, bronchitis, DM PSHx: none given Allergies: shellfish Social Hx: NO tobacco, EtOH, or illicit drug use. Active Medications Heparin Sodium (Porcine) (Heparin) 5,000 units SC Q8 [facility]; Protocol Sodium Chloride (Sodium Chloride 0.9%) 1,000 mls @ 150 mls/hr IV .Q6H40M [facility] Last Admin: 08/26/18 18:54 Dose: Not Given Sodium Chloride (Sodium Chloride 0.9%) 1,000 mls @ 100 mls/hr IV .Q10H [facility] Last Admin: 08/26/18 18:55 Dose: 100 mls/hr Cefepime HCl (Maxipime 2gm) 2 gm in 100 mls @ 100 mls/hr IVPB Q12 [place]; Protocol Stop: 08/31/18 22:01 Ondansetron HCl (Zofran Inj) 4 mg IVP Q6H PRN PRN Reason: Nausea/Vomiting Pantoprazole Sodium (Protonix Ec Tab) 40 mg PO 0600 [facility] Family Hx: none given ROS: abdominal and back pain. subjective fevers. No chest pain, melena, hematuria, hematemesis, hematochezia, depression, anxiety, diarrhea, vision loss, hearing loss, dizziness, LOC Past Patient History - Infectious Disease Hx of Infectious Diseases: None - Tetanus Immunizations Tetanus Immunization: Unknown - Past Social History Smoking Status: Never Smoked - CARDIAC Hx Hypertension: Yes - PULMONARY Hx Respiratory Disorders: No - NEUROLOGICAL Hx Neurological Disorder: Yes - HEENT Hx HEENT Problems: No - RENAL Hx Chronic Kidney Disease: No - ENDOCRINE/METABOLIC Hx Endocrine Disorders: No - HEMATOLOGICAL/ONCOLOGICAL Hx Blood Disorders: No - INTEGUMENTARY Hx Dermatological Problems: No - MUSCULOSKELETAL/RHEUMATOLOGICAL Hx Osteoporosis: Yes - GASTROINTESTINAL Hx Gastrointestinal Disorders: No - GENITOURINARY/GYNECOLOGICAL Hx Genitourinary Disorders: No - PSYCHIATRIC Hx Anxiety: Yes Hx Depression: Yes Hx Substance Use: No - SURGICAL HISTORY Hx Surgeries: No - ANESTHESIA Hx Anesthesia: No Hx Anesthesia Reactions: No Hx Malignant Hyperthermia: No Meds Allergies/Adverse Reactions: Allergies Allergy/AdvReac Type Severity Reaction Status Date / Time shellfish derived Allergy ANAPHYLAXIS Verified 08/20/18 09:10 - Medications Medications: Current Medications Heparin Sodium (Porcine) (Heparin) 5,000 units SC Q8 [facility]; Protocol Sodium Chloride (Sodium Chloride 0.9%) 1,000 mls @ 150 mls/hr IV .Q6H40M [facility] Last Admin: 08/26/18 16:07 Dose: 150 mls/hr Sodium Chloride (Sodium Chloride 0.9%) 1,000 mls @ 100 mls/hr IV .Q10H [facility] Cefepime HCl (Maxipime 2gm) 2 gm in 100 mls @ 100 mls/hr IVPB Q12 [facility]; Protocol Stop: 08/31/18 22:01 Ondansetron HCl (Zofran Inj) 4 mg IVP Q6H PRN PRN Reason: Nausea/Vomiting Pantoprazole Sodium (Protonix Ec Tab) 40 mg PO 0600 [facility] Physical Exam - Constitutional Appears: Non-toxic, No Acute Distress, Chronically Ill - Head Exam Head Exam: ATRAUMATIC, NORMOCEPHALIC - Eye Exam Eye Exam: EOMI, PERRL Pupil Exam: NORMAL ACCOMODATION, PERRL - ENT Exam ENT Exam: Mucous Membranes Moist, Normal External Ear Exam, TM's Normal Bilaterally - Neck Exam Neck exam: Positive for: Full Rom, Normal Inspection - Respiratory Exam Respiratory Exam: Clear to Auscultation Bilateral, NORMAL BREATHING PATTERN. absent: Rales, Rhonchi, Wheezes - Cardiovascular Exam Cardiovascular Exam: REGULAR RHYTHM, RRR, +S1, +S2 - GI/Abdominal Exam GI & Abdominal Exam: Normal Bowel Sounds, Soft, Tenderness. absent: Distended Additional comments: right flank pain. - Extremities Exam Extremities exam: Positive for: full ROM, normal inspection - Neurological Exam Neurological exam: Alert, CN II-XII Intact, Oriented x3 - Psychiatric Exam Psychiatric exam: Normal Affect, Normal Mood - Skin Skin Exam: Intact, Normal Color Results - Vital Signs Recent Vital Signs: Last Vital Signs Temp 98.6 F 03/15/19 18:05 Pulse 70 08/26/18 18:05 Resp 18 08/26/18 18:05 BP 106/65 08/26/18 18:05 Pulse Ox 96 08/26/18 18:05 - Labs Result Diagrams: 08/26/18 15:30 08/26/18 15:30 Labs: Laboratory Results - last 24 hr 08/26/18 08/26/18 08/26/18 15:30 15:30 15:30 WBC 3.6 L RBC 4.19 Hgb 12.8 Hct 38.3 MCV 91.4 MCH 30.5 MCHC 33.4 RDW 13.5 Plt Count 174 MPV 11.4 H Neut % (Auto) 51.8 Lymph % (Auto) 33.3 [place] % (Auto) 11.0 H Eos % (Auto) 3.6 Baso % (Auto) 0.3 Lymph # (Auto) 1.2 [place] # (Auto) 0.4 Eos # (Auto) 0.1 Baso # (Auto) 0.01 Absolute Neuts (auto) 1.88 pO2 47 VBG pH 7.36 VBG pCO2 58.0 VBG HCO3 32.8 H VBG Total CO2 34.6 H VBG O2 Sat (Calc) 86.0 H VBG Base Excess 5.6 H VBG Potassium 3.7 Sodium 141.0 144 Chloride 106.0 103 Glucose 94 Lactate 1.1 FiO2 21.0 Potassium 3.7 Carbon Dioxide 30 Anion Gap 14 BUN 13 Creatinine 0.6 L Est GFR ( Amer) > 60 Est GFR (Non-Af Amer) > 60 Random Glucose 90 Calcium 9.0 Total Bilirubin 0.2 AST 37 H D ALT 28 Alkaline Phosphatase 84 Total Protein 8.0 Albumin 4.3 Globulin 3.7 Albumin/Globulin Ratio 1.2 Lipase 88 Venous Blood Potassium 3.7 Urine Color Urine Appearance Urine pH Ur Specific [place] Urine Protein Urine Glucose (UA) Urine Ketones Urine Blood Urine Nitrate Urine Bilirubin Urine Urobilinogen Ur Leukocyte Esterase Urine RBC Urine WBC Ur Epithelial Cells 08/26/18 15:30 WBC RBC Hgb Hct MCV MCH MCHC RDW Plt Count MPV Neut % (Auto) Lymph % (Auto) [place] % (Auto) Eos % (Auto) Baso % (Auto) Lymph # (Auto) [place] # (Auto) Eos # (Auto) Baso # (Auto) Absolute Neuts (auto) pO2 VBG pH VBG pCO2 VBG HCO3 VBG Total CO2 VBG O2 Sat (Calc) VBG Base Excess VBG Potassium Sodium Chloride Glucose Lactate FiO2 Potassium Carbon Dioxide Anion Gap BUN Creatinine Est GFR ( Amer) Est GFR (Non-Af Amer) Random Glucose Calcium Total Bilirubin AST ALT Alkaline Phosphatase Total Protein Albumin Globulin Albumin/Globulin Ratio Lipase Venous Blood Potassium Urine Color Yellow Urine Appearance Slight-cloudy Urine pH 7.0 Ur Specific [place] 1.020 Urine Protein Negative Urine Glucose (UA) Negative Urine Ketones Negative Urine Blood Trace-intact H Urine Nitrate Negative Urine Bilirubin Negative Urine Urobilinogen 1.0 H Ur Leukocyte Esterase Large H Urine RBC 10 - 15 H Urine WBC Tntc H Ur Epithelial Cells 3 - 4 Assessment & Plan - Assessment and Plan (Free Text) Assessment: 53 yo female with subjective fever, back pain, and frequent urination with signs of a UTI. Urine cultures pending. The patient was on Fluoroquinolone for treatment. Cannot rule out pyelonephritis at this point. Started on Cefepime. Cefepime can be given 1gm Q12hrs for now. Awaiting culture results. Negative Abdominal X-ray. Renal Ultrasound pending. Supportive care. Monitor WBC. Low WBC count but not leukopenia. Thank you for allowing me to participate in the care of the patient, we will follow with you. Case discussed with Dr. Hernandez.
--- NOTE | 2018-08-26 20:14 | CP.PCM.HP ---
<Heladio Kaiser - Last Filed: 08/26/18 20:10> History of Present Illness - History of Present Illness History of Present Illness: Hospitalist H&P CC: back pain, malaise This is a 53 year old Ukrainian speaking female with PMH of HTN and HLD [place] [facility] [place] failure of U[place]. Patient was seen in the ED one week ago for UTI and discharge on 10 day course of ciprofloxacin. However, after 3 days patient states she developed nausea, vomiting, abdominal pain and generalized weakness and stopped the antibiotic. Today, she states she has had poor oral intake for the last 3-4 days and has B/L mid back pain. Her last episode of vomiting was 3 days ago and she admits to subjective fevers at home. She denies CP, SOB, headaches, numbness, tingling, diarrhea, constipation, recent travel, urinary complaints, chills and hematuria/hematochezia. 12 point ROS noted here, otherwise unremarkable. PMH: HTN, HLD PMD: [facility] clinic SH: denies drinking, drugs and smoking Surgeries: denies All: denies FH: sister has kidney stones Meds: Norvasc 5mg, zocor 20mg, atenolol 50mg, clonopin 0.5mg, timolol 0.5mg eyedrops [place] [facility] Present on Admission - Present on Admission Any Indicators Present on Admission: No Past Patient History - Infectious Disease Hx of Infectious Diseases: None - Tetanus Immunizations Tetanus Immunization: Unknown - Past Social History Smoking Status: Never Smoked - CARDIAC Hx Hypertension: Yes - PULMONARY Hx Respiratory Disorders: No - NEUROLOGICAL Hx Neurological Disorder: Yes - HEENT Hx HEENT Problems: No - RENAL Hx Chronic Kidney Disease: No - ENDOCRINE/METABOLIC Hx Endocrine Disorders: No - HEMATOLOGICAL/ONCOLOGICAL Hx Blood Disorders: No - INTEGUMENTARY Hx Dermatological Problems: No - MUSCULOSKELETAL/RHEUMATOLOGICAL Hx Osteoporosis: Yes - GASTROINTESTINAL Hx Gastrointestinal Disorders: No - GENITOURINARY/GYNECOLOGICAL Hx Genitourinary Disorders: No - PSYCHIATRIC Hx Anxiety: Yes Hx Depression: Yes Hx Substance Use: No - SURGICAL HISTORY Hx Surgeries: No - ANESTHESIA Hx Anesthesia: No Hx Anesthesia Reactions: No Hx Malignant Hyperthermia: No Meds Allergies/Adverse Reactions: Allergies Allergy/AdvReac Type Severity Reaction Status Date / Time shellfish derived Allergy ANAPHYLAXIS Verified 08/20/18 09:10 Physical Exam - Constitutional Appears: Non-toxic, Other Additional comments: weak - Eye Exam Eye Exam: EOMI Pupil Exam: PERRL - ENT Exam ENT Exam: Mucous Membranes Dry - Respiratory Exam Respiratory Exam: Clear to Auscultation Bilateral, NORMAL BREATHING PATTERN. absent: Accessory Muscle Use, Respiratory Distress - Cardiovascular Exam Cardiovascular Exam: REGULAR RHYTHM, +S1, +S2 - GI/Abdominal Exam GI & Abdominal Exam: Soft. absent: Guarding, Hernia, Tenderness - Extremities Exam Extremities exam: Positive for: normal inspection, pedal pulses present. Negative for: calf tenderness - Back Exam Back exam: CVA tenderness (L), CVA tenderness (R) - Neurological Exam Neurological exam: Alert, CN II-XII Intact, Oriented x3 - Skin Skin Exam: Normal Color, Warm Results - Vital Signs Recent Vital Signs: Last Vital Signs Temp 98.6 F 08/26/18 18:05 Pulse 69 08/26/18 20:02 Resp 18 08/26/18 20:02 BP 107/64 08/26/18 20:02 Pulse Ox 97 08/26/18 20:02 - Labs Result Diagrams: 08/26/18 15:30 08/26/18 15:30 Labs: Laboratory Results - last 24 hr 08/26/18 08/26/18 08/26/18 15:30 15:30 15:30 WBC 3.6 L RBC 4.19 Hgb 12.8 Hct 38.3 MCV 91.4 MCH 30.5 MCHC 33.4 RDW 13.5 Plt Count 174 MPV 11.4 H Neut % (Auto) 51.8 Lymph % (Auto) 33.3 [place] % (Auto) 11.0 H Eos % (Auto) 3.6 Baso % (Auto) 0.3 Lymph # (Auto) 1.2 [place] # (Auto) 0.4 Eos # (Auto) 0.1 Baso # (Auto) 0.01 Absolute Neuts (auto) 1.88 pO2 47 VBG pH 7.36 VBG pCO2 58.0 VBG HCO3 32.8 H VBG Total CO2 34.6 H VBG O2 Sat (Calc) 86.0 H VBG Base Excess 5.6 H VBG Potassium 3.7 Sodium 141.0 144 Chloride 106.0 103 Glucose 94 Lactate 1.1 FiO2 21.0 Potassium 3.7 Carbon Dioxide 30 Anion Gap 14 BUN 13 Creatinine 0.6 L Est GFR ( Amer) > 60 Est GFR (Non-Af Amer) > 60 Random Glucose 90 Calcium 9.0 Total Bilirubin 0.2 AST 37 H D ALT 28 Alkaline Phosphatase 84 Total Protein 8.0 Albumin 4.3 Globulin 3.7 Albumin/Globulin Ratio 1.2 Lipase 88 Venous Blood Potassium 3.7 Urine Color Urine Appearance Urine pH Ur Specific [place] Urine Protein Urine Glucose (UA) Urine Ketones Urine Blood Urine Nitrate Urine Bilirubin Urine Urobilinogen Ur Leukocyte Esterase Urine RBC Urine WBC Ur Epithelial Cells 08/26/18 15:30 WBC RBC Hgb Hct MCV MCH MCHC RDW Plt Count MPV Neut % (Auto) Lymph % (Auto) [place] % (Auto) Eos % (Auto) Baso % (Auto) Lymph # (Auto) [place] # (Auto) Eos # (Auto) Baso # (Auto) Absolute Neuts (auto) pO2 VBG pH VBG pCO2 VBG HCO3 VBG Total CO2 VBG O2 Sat (Calc) VBG Base Excess VBG Potassium Sodium Chloride Glucose Lactate FiO2 Potassium Carbon Dioxide Anion Gap BUN Creatinine Est GFR ( Amer) Est GFR (Non-Af Amer) Random Glucose Calcium Total Bilirubin AST ALT Alkaline Phosphatase Total Protein Albumin Globulin Albumin/Globulin Ratio Lipase Venous Blood Potassium Urine Color Yellow Urine Appearance Slight-cloudy Urine pH 7.0 Ur Specific [place] 1.020 Urine Protein Negative Urine Glucose (UA) Negative Urine Ketones Negative Urine Blood Trace-intact H Urine Nitrate Negative Urine Bilirubin Negative Urine Urobilinogen 1.0 H Ur Leukocyte Esterase Large H Urine RBC 10 - 15 H Urine WBC Tntc H Ur Epithelial Cells 3 - 4 Assessment & Plan - Assessment and Plan (Free Text) Assessment: This is a 53 year old Ukrainian speaking female with PMH of HTN and HLD presenting [place] ED [place] [facility] [place] failure of UTI. Patient was seen in the ED one week ago for UTI and discharge on 10 day course of ciprofloxacin. Plan: Outpatient UTI failure -cefepime day 1 -ID on consult, Dr. Mullins -urine cx, blood cx pending -afebrile, no WBC count -UA positive for leuk esterase, many WBC -Renal US pending -Abd xray pending read -zofran prn -IV fluids Hx of HTN -home meds are norvasc 5mg, atenolol 50mg, clonopine 0.5mg confirmed [place] [facility] [place] -currently low-normal blood pressure, will hold off on BP meds Hx of HLD -cotninue zocor 20mg PPX/Diet -protonix/heparin -HHD Patient seen and case discussed with attending, Dr. Hernandez <Maribel Hernandez - Last Filed: 08/27/18 07:07> Results - Vital Signs Recent Vital Signs: Last Vital Signs Temp 98.6 F 08/26/18 18:05 Pulse 69 08/26/18 20:02 Resp 18 08/26/18 20:02 BP 109/51 L 08/26/18 20:02 Pulse Ox 97 08/26/18 20:02 - Labs Result Diagrams: 08/26/18 15:30 08/26/18 15:30 Labs: Laboratory Results - last 24 hr 08/26/18 08/26/18 08/26/18 15:30 15:30 15:30 WBC 3.6 L RBC 4.19 Hgb 12.8 Hct 38.3 MCV 91.4 MCH 30.5 MCHC 33.4 RDW 13.5 Plt Count 174 MPV 11.4 H Neut % (Auto) 51.8 Lymph % (Auto) 33.3 [place] % (Auto) 11.0 H Eos % (Auto) 3.6 Baso % (Auto) 0.3 Lymph # (Auto) 1.2 [place] # (Auto) 0.4 Eos # (Auto) 0.1 Baso # (Auto) 0.01 Absolute Neuts (auto) 1.88 pO2 47 VBG pH 7.36 VBG pCO2 58.0 VBG HCO3 32.8 H VBG Total CO2 34.6 H VBG O2 Sat (Calc) 86.0 H VBG Base Excess 5.6 H VBG Potassium 3.7 Sodium 141.0 144 Chloride 106.0 103 Glucose 94 Lactate 1.1 FiO2 21.0 Potassium 3.7 Carbon Dioxide 30 Anion Gap 14 BUN 13 Creatinine 0.6 L Est GFR ( Amer) > 60 Est GFR (Non-Af Amer) > 60 Random Glucose 90 Calcium 9.0 Total Bilirubin 0.2 AST 37 H D ALT 28 Alkaline Phosphatase 84 Total Protein 8.0 Albumin 4.3 Globulin 3.7 Albumin/Globulin Ratio 1.2 Lipase 88 Venous Blood Potassium 3.7 Urine Color Urine Appearance Urine pH Ur Specific [place] Urine Protein Urine Glucose (UA) Urine Ketones Urine Blood Urine Nitrate Urine Bilirubin Urine Urobilinogen Ur Leukocyte Esterase Urine RBC Urine WBC Ur Epithelial Cells 08/26/18 15:30 WBC RBC Hgb Hct MCV MCH MCHC RDW Plt Count MPV Neut % (Auto) Lymph % (Auto) [place] % (Auto) Eos % (Auto) Baso % (Auto) Lymph # (Auto) [place] # (Auto) Eos # (Auto) Baso # (Auto) Absolute Neuts (auto) pO2 VBG pH VBG pCO2 VBG HCO3 VBG Total CO2 VBG O2 Sat (Calc) VBG Base Excess VBG Potassium Sodium Chloride Glucose Lactate FiO2 Potassium Carbon Dioxide Anion Gap BUN Creatinine Est GFR ( Amer) Est GFR (Non-Af Amer) Random Glucose Calcium Total Bilirubin AST ALT Alkaline Phosphatase Total Protein Albumin Globulin Albumin/Globulin Ratio Lipase Venous Blood Potassium Urine Color Yellow Urine Appearance Slight-cloudy Urine pH 7.0 Ur Specific [place] 1.020 Urine Protein Negative Urine Glucose (UA) Negative Urine Ketones Negative Urine Blood Trace-intact H Urine Nitrate Negative Urine Bilirubin Negative Urine Urobilinogen 1.0 H Ur Leukocyte Esterase Large H Urine RBC 10 - 15 H Urine WBC Tntc H Ur Epithelial Cells 3 - 4 Attending/Attestation - Attestation I have personally seen and examined this patient.: Yes I have fully participated in the care of the patient.: Yes I have reviewed all pertinent clinical information: Yes Notes (Text): 08/26/18 53 year old female with past medical history of hypertension and dyslipidemia who was recently started on outpatient antibiotics (cipro) for UTI presents with nausea, vomiting, flank pain and dysuria. Admitted for outpatient failure of treatment for UTI, r/o pyelonephritis. Abdominal Xray was reviewed. Renal US is ordered. Continue with iv antibiotics while awaiting urine culture. ID evaluation was appreciated. Maribel Hernandez MD Hospitalist.
[2018-08-26] MEDS ORDERED: Cefepime IV 2 gm in NS 2 GM/100 ML BAG IVPB SCH (22:00)
[2018-08-27] MEDS: Pantoprazole 40 mg EC Tab PO SCH (05:50)
[2018-08-27 08:06] LABS: BASO # 0.01 K/mm3 (0.0-2.0); BASO % 0.3 % (0.0-3.0); EOS # 0.2 (0.0-0.7); EOS % 4.3 % (1.5-5.0); HEMOGLOBIN 11.5 g/dL (12.0-16.0); LYMPH # 1.1 (1.2-3.4); LYMPH % 31.2 % (22.0-35.0); MEAN CELL VOLUME 91.6 fl (80.0-105.0); MEAN CORPUSCULAR HEMOGLOBIN 30.1 pg (25.0-35.0); MEAN CORPUSCULAR HGB CONC 32.9 g/dl (31.0-37.0); MEAN PLATELET VOLUME 11.4 fl (7.0-11.0); MONO # 0.3 (0.1-0.6); MONO % 9.8 % (1.0-6.0); RBC 3.82 10^6/uL (3.5-6.1); RED CELL DISTRIBUTION WIDTH 13.3 % (11.5-14.5); WHITE BLOOD COUNT 3.5 10^3/uL (4.5-11.0)
[2018-08-27 08:20] LABS: BLOOD UREA NITROGEN 16 mg/dL (7-21); CALCIUM 8.2 mg/dL (8.4-10.5); GFR NON-AFRICAN AMERICAN > 60
[2018-08-27] MEDS: Cefepime 1gm in NS 100ml 1 GM/100 ML BAG IVPB SCH ×2 (10:22→21:27)
--- NOTE | 2018-08-27 10:32 | US ---
Date of service: 08/27/2018 PROCEDURE: Ultrasound of the Kidneys HISTORY: renal calculi, pyelonephritis ro COMPARISON: 10/06/2017 abdominal ultrasound. 08/20/2018 CT abdomen and pelvis.. TECHNIQUE: Sonogram of the kidneys. FINDINGS: RIGHT KIDNEY: Measures: 5 x 10.7 cm. Normal in size, contour and echogenicity. No stone, solid mass lesion or hydronephrosis visualized. Parapelvic cyst 1.6 x 2 cm LEFT KIDNEY: Measures: 5.5 x 10.0 cm. Normal in size, contour and echogenicity. No stone, solid mass lesion or hydronephrosis visualized. OTHER FINDINGS: None. IMPRESSION: No significant or acute findings to account for/ related to the clinical presentation. Additional benign and/or incidental findings described above.
--- NOTE | 2018-08-27 11:18 | CP.PCM.PN ---
<Nick Leach - Last Filed: 08/27/18 16:31> Subjective - Date & Time of Evaluation Date of Evaluation: 08/27/18 Time of Evaluation: 16:41 - Subjective Subjective: Nick Leach PGY1 Medicine Progress Note: Pt was seen and examined in the AM at bedside. Pt states that she continues to have back pain and dysuria. She has no other acute complaints at this time. Objective - Vital Signs/Intake and Output Vital Signs (last 24 hours): Temp Pulse Resp BP Pulse Ox 98 F 71 18 104/69 98 08/27/18 06:00 08/27/18 06:00 08/27/18 06:00 08/27/18 06:00 08/27/18 06:00 Intake and Output: 08/27/18 08/27/18 06:59 18:59 Intake Total 120 Balance 120 - Medications Medications: Current Medications Heparin Sodium (Porcine) (Heparin) 5,000 units SC Q8 JORGITO; Protocol Last Admin: 08/27/18 05:50 Dose: 5,000 units Sodium Chloride (Sodium Chloride 0.9%) 1,000 mls @ 150 mls/hr IV .Q6H40M JORGITO Last Admin: 08/26/18 18:54 Dose: Not Given Sodium Chloride (Sodium Chloride 0.9%) 1,000 mls @ 100 mls/hr IV .Q10H JORGITO Last Admin: 08/26/18 18:55 Dose: 100 mls/hr Cefepime HCl (Maxipime 1gm) 1 gm in 100 mls @ 100 mls/hr IVPB Q12 JORGITO; Protocol Last Admin: 08/27/18 10:22 Dose: 100 mls/hr Ondansetron HCl (Zofran Inj) 4 mg IVP Q6H PRN PRN Reason: Nausea/Vomiting Last Admin: 08/26/18 20:31 Dose: 4 mg Pantoprazole Sodium (Protonix Ec Tab) 40 mg PO 0600 JORGITO Last Admin: 08/27/18 05:50 Dose: 40 mg - Labs Labs: 08/27/18 07:30 08/27/18 07:30 - Constitutional Appears: Non-toxic, No Acute Distress - Head Exam Head Exam: ATRAUMATIC, NORMAL INSPECTION, NORMOCEPHALIC - Eye Exam Eye Exam: EOMI, Normal appearance, PERRL - Respiratory Exam Respiratory Exam: Clear to Ausculation Bilateral, NORMAL BREATHING PATTERN. absent: Accessory Muscle Use, Rales, Rhonchi, Wheezes, Respiratory Distress, Stridor - Cardiovascular Exam Cardiovascular Exam: RRR, +S1, +S2. absent: Gallop, Rubs - GI/Abdominal Exam GI & Abdominal Exam: Soft, Normal Bowel Sounds. absent: Guarding, Rigid, Tenderness - Extremities Exam Extremities Exam: Full ROM, Normal Capillary Refill, Normal Inspection - Back Exam Back Exam: NORMAL INSPECTION. absent: CVA tenderness (L), CVA tenderness (R) - Neurological Exam Neurological Exam: Alert, Awake, Oriented x3 - Psychiatric Exam Psychiatric exam: Normal Affect, Normal Mood - Skin Skin Exam: Dry, Normal Color, Warm Assessment and Plan - Assessment and Plan (Free Text) Assessment: This is a 53 year old Frisian speaking female with PMH of HTN and HLD presenting to the ED from the [facility] clinic for outpatient failure of UTI. Patient was seen in the ED one week ago for UTI and discharge on 10 day course of ciprofloxacin. Plan: Outpatient UTI failure - cefepime day 2 - ID on consult, Dr. Mullins - urine cx, blood cx pending - afebrile, no WBC count - UA positive for leuk esterase, many WBC - Previous 2 Ucxs have been (-) - Renal US - No significant or acute findings - Abd xray pending read - zofran prn - IV fluids Hx of HTN - home meds are norvasc 5mg, atenolol 50mg - resumed, will continue to monitor Hx of HLD - lipitor 10mg qhs PPX/Diet - protonix/heparin - HHD Patient seen and case discussed with attending, Dr. Mary Leach, PGY1 <Maribel Hernandez - Last Filed: 08/27/18 17:01> Objective - Vital Signs/Intake and Output Vital Signs (last 24 hours): Temp Pulse Resp BP Pulse Ox 97.9 F 66 18 115/75 96 08/27/18 14:00 08/27/18 14:00 08/27/18 14:00 08/27/18 14:00 08/27/18 14:00 Intake and Output: 08/27/18 08/27/18 06:59 18:59 Intake Total 120 Balance 120 - Medications Medications: Current Medications Acetaminophen (Tylenol 325mg Tab) 650 mg PO Q6H PRN PRN Reason: Pain, Mild (1-3) Amlodipine Besylate (Norvasc) 5 mg PO DAILY JORGITO Atenolol (Tenormin) 50 mg PO DAILY [facility] Heparin Sodium (Porcine) (Heparin) 5,000 units SC Q8 JORGITO; Protocol Last Admin: 08/27/18 15:21 Dose: 5,000 units Sodium Chloride (Sodium Chloride 0.9%) 1,000 mls @ 100 mls/hr IV .Q10H JORGITO Last Admin: 08/27/18 15:20 Dose: 100 mls/hr Cefepime HCl (Maxipime 1gm) 1 gm in 100 mls @ 100 mls/hr IVPB Q12 JORGITO; Protocol Last Admin: 08/27/18 10:22 Dose: 100 mls/hr Ondansetron HCl (Zofran Inj) 4 mg IVP Q6H PRN PRN Reason: Nausea/Vomiting Last Admin: 08/26/18 20:31 Dose: 4 mg Pantoprazole Sodium (Protonix Ec Tab) 40 mg PO 0600 JORGITO Last Admin: 08/27/18 05:50 Dose: 40 mg - Labs Labs: 08/27/18 07:30 08/27/18 07:30 Attending/Attestation - Attestation I have personally seen and examined this patient.: Yes I have fully participated in the care of the patient.: Yes I have reviewed all pertinent clinical information, including history, physical exam and plan: Yes Notes (Text): 08/27/18 16:56 53 year old female with past medical history of hypertension and dyslipidemia who was recently started on outpatient antibiotics (cipro) for UTI who presented with nausea, vomiting, flank pain and dysuria. Admitted for outpatient failure of treatment for UTI, r/o pyelonephritis. Abdominal xray and renal ultrasound are negative. Continue with iv antibiotics while awaiting urine culture. ID is following. Maribel Hernandez MD Hospitalist.
[2018-08-27] MEDS: Sodium Chloride 0.9% 1,000 ML IV SCH (15:20)
--- NOTE | 2018-08-27 18:47 | CP.PCM.PN ---
Subjective - Date & Time of Evaluation Date of Evaluation: 08/27/18 Time of Evaluation: 15:30 - Subjective Subjective: Infectious Disease Follow Up: August 27, 2018 53 yo female with fever and back pain for the past month. Recent in the ER for similar complaints on August 20, 2018. The patient PMHx includes bronchitis, UTI, hypertension, and diabetes. She was given a fluoroquinolone for treatment. She could not tolerate doses of the antibiotic after the 3rd day where she had nausea and vomiting. Cultures of the urine from the August 20, 2018, ER visit were negative. The patient continues to complain of right sided flank pain and back pain Currently afebrile. Relatively low WBC count. Objective - Vital Signs/Intake and Output Vital Signs (last 24 hours): Temp Pulse Resp BP Pulse Ox 97.9 F 66 18 115/75 96 08/27/18 14:00 08/27/18 14:00 08/27/18 14:00 08/27/18 14:00 08/27/18 14:00 Intake and Output: 08/27/18 08/27/18 06:59 18:59 Intake Total 120 Balance 120 - Medications Medications: Current Medications Acetaminophen (Tylenol 325mg Tab) 650 mg PO Q6H PRN PRN Reason: Pain, Mild (1-3) Amlodipine Besylate (Norvasc) 5 mg PO DAILY JORGTIO Atenolol (Tenormin) 50 mg PO DAILY JORGITO Atorvastatin Calcium (Lipitor) 10 mg PO DIN JORGITO Last Admin: 08/27/18 17:59 Dose: 10 mg Heparin Sodium (Porcine) (Heparin) 5,000 units SC Q8 JORGITO; Protocol Last Admin: 08/27/18 15:21 Dose: 5,000 units Sodium Chloride (Sodium Chloride 0.9%) 1,000 mls @ 100 mls/hr IV .Q10H JORGITO Last Admin: 08/27/18 15:20 Dose: 100 mls/hr Cefepime HCl (Maxipime 1gm) 1 gm in 100 mls @ 100 mls/hr IVPB Q12 JORGITO; Protocol Last Admin: 08/27/18 10:22 Dose: 100 mls/hr Ondansetron HCl (Zofran Inj) 4 mg IVP Q6H PRN PRN Reason: Nausea/Vomiting Last Admin: 08/26/18 20:31 Dose: 4 mg Pantoprazole Sodium (Protonix Ec Tab) 40 mg PO 0600 JORGITO Last Admin: 08/27/18 05:50 Dose: 40 mg - Labs Labs: 08/27/18 07:30 08/27/18 07:30 - Constitutional Appears: Non-toxic, No Acute Distress, Chronically Ill - Head Exam Head Exam: ATRAUMATIC, NORMOCEPHALIC - Eye Exam Eye Exam: EOMI, PERRL Pupil Exam: NORMAL ACCOMODATION, PERRL - ENT Exam ENT Exam: Mucous Membranes Moist, Normal External Ear Exam, TM's Normal Bilaterally - Neck Exam Neck Exam: Full ROM, Normal Inspection - Respiratory Exam Respiratory Exam: Clear to Ausculation Bilateral, NORMAL BREATHING PATTERN. absent: Rales, Rhonchi, Wheezes - Cardiovascular Exam Cardiovascular Exam: REGULAR RHYTHM, RRR, +S1, +S2 - GI/Abdominal Exam GI & Abdominal Exam: Soft, Normal Bowel Sounds. absent: Distended, Tenderness Additional comments: back and right flank pain. - Extremities Exam Extremities Exam: Full ROM, Normal Inspection - Neurological Exam Neurological Exam: Alert, Awake, CN II-XII Intact, Oriented x3 - Psychiatric Exam Psychiatric exam: Normal Affect, Normal Mood - Skin Skin Exam: Intact, Normal Color Assessment and Plan - Assessment and Plan (Free Text) Assessment: 53 yo female with subjective fever, back pain, and frequent urination with signs of a UTI. Urine cultures pending. The patient was on Fluoroquinolone for treatment. Cannot rule out pyelonephritis at this point. Started on Cefepime. Cefepime can be given 1gm Q12hrs for now. Awaiting culture results. Negative Abdominal X-ray. Renal Ultrasound pending. Supportive care. Monitor WBC. Low WBC count but not leukopenia. Renal Ultrasound also appears to be negative. If back pain persists, consider CT scan. Check ESR. Thank you for allowing me to participate in the care of the patient, we will follow with you. Case discussed with Dr. Hernandez.
[2018-08-28] MEDS: Sodium Chloride 0.9% 1,000 ML IV SCH ×2 (05:17→09:26)
[2018-08-28] MEDS: Pantoprazole 40 mg EC Tab PO SCH (05:26)
[2018-08-28 08:11] LABS: BASO # 0.03 K/mm3 (0.0-2.0); BASO % 0.9 % (0.0-3.0); EOS # 0.1 (0.0-0.7); EOS % 3.4 % (1.5-5.0); HEMOGLOBIN 11.8 g/dL (12.0-16.0); LYMPH # 1.2 (1.2-3.4); LYMPH % 36.5 % (22.0-35.0); MEAN CELL VOLUME 91.1 fl (80.0-105.0); MEAN CORPUSCULAR HEMOGLOBIN 29.9 pg (25.0-35.0); MEAN CORPUSCULAR HGB CONC 32.8 g/dl (31.0-37.0); MEAN PLATELET VOLUME 11.2 fl (7.0-11.0); MONO # 0.4 (0.1-0.6); MONO % 11.7 % (1.0-6.0); RBC 3.95 10^6/uL (3.5-6.1); RED CELL DISTRIBUTION WIDTH 13.4 % (11.5-14.5); WHITE BLOOD COUNT 3.3 10^3/uL (4.5-11.0)
[2018-08-28 08:20] LABS: BLOOD UREA NITROGEN 13 mg/dL (7-21); CALCIUM 8.4 mg/dL (8.4-10.5); GFR NON-AFRICAN AMERICAN > 60
[2018-08-28 08:40] VITALS: BP 113/70; PULSE 67; TEMP 97.8; O2SAT 99
[2018-08-28] MEDS: Cefepime 1gm in NS 100ml 1 GM/100 ML BAG IVPB SCH (09:28)
--- NOTE | 2018-08-28 12:26 | CP.PCM.DIS ---
Provider - Provider Date of Admission: 08/26/18 17:10 Attending physician: Maribel Hernandez MD Primary care physician: [facility] PRIMARY CARE PROVIDER Consults: 08/26/18 17:53 Infectious Disease Consult Stat Comment: Consulting Provider: Gabe Mullins Consulting Physician: Gabe Mullins Reason for Consult: UTI, cefepime Hospital Course - Lab Results Lab Results: Micro Results 08/26/18 16:00 Blood-Venous Blood Culture - Preliminary NO GROWTH AFTER 24 HOURS 08/26/18 15:30 Blood-Venous Blood Culture - Preliminary NO GROWTH AFTER 24 HOURS 08/26/18 15:30 Urine,Clean Catch Urine Culture - Final No Growth (<1,000 CFU/ML) Most Recent Lab Values WBC 3.3 10^3/uL (4.5-11.0) L 08/28/18 07:00 RBC 3.95 10^6/uL (3.5-6.1) 08/28/18 07:00 Hgb 11.8 g/dL (12.0-16.0) L 08/28/18 07:00 Hct 36.0 % (36.0-48.0) 08/28/18 07:00 MCV 91.1 fl (80.0-105.0) 08/28/18 07:00 MCH 29.9 pg (25.0-35.0) 08/28/18 07:00 MCHC 32.8 g/dl (31.0-37.0) 08/28/18 07:00 RDW 13.4 % (11.5-14.5) 08/28/18 07:00 Plt Count 165 10^3/uL (120.0-450.0) 08/28/18 07:00 MPV 11.2 fl (7.0-11.0) H 08/28/18 07:00 Neut % (Auto) 47.5 % (50.0-68.0) L 08/28/18 07:00 Lymph % (Auto) 36.5 % (22.0-35.0) H 08/28/18 07:00 Larue % (Auto) 11.7 % (1.0-6.0) H 08/28/18 07:00 Eos % (Auto) 3.4 % (1.5-5.0) 08/28/18 07:00 Baso % (Auto) 0.9 % (0.0-3.0) 08/28/18 07:00 Lymph # (Auto) 1.2 (1.2-3.4) 08/28/18 07:00 Larue # (Auto) 0.4 (0.1-0.6) 08/28/18 07:00 Eos # (Auto) 0.1 (0.0-0.7) 08/28/18 07:00 Baso # (Auto) 0.03 K/mm3 (0.0-2.0) 08/28/18 07:00 Absolute Neuts (auto) 1.55 (1.4-6.5) 08/28/18 07:00 ESR 44 mm/hr (0.0-20.0) H 08/28/18 07:00 pO2 47 mm/Hg (30-55) 08/26/18 15:30 VBG pH 7.36 (7.32-7.43) 08/26/18 15:30 VBG pCO2 58.0 (40-60) 08/26/18 15:30 VBG HCO3 32.8 mmol/l (21-28) H 08/26/18 15:30 VBG Total CO2 34.6 mmol.L (22-28) H 08/26/18 15:30 VBG O2 Sat (Calc) 86.0 % (40-65) H 08/26/18 15:30 VBG Base Excess 5.6 mmol/L (0.0-2.0) H 08/26/18 15:30 VBG Potassium 3.7 mmol/L (3.6-5.2) 08/26/18 15:30 Sodium 141.0 mmol/L (132-148) 08/26/18 15:30 Chloride 106.0 mmol/L (98-107) 08/26/18 15:30 Glucose 94 mg/dl (65-105) 08/26/18 15:30 Lactate 1.1 mmol/L (0.7-2.1) 08/26/18 15:30 FiO2 21.0 % 08/26/18 15:30 Sodium 142 mmol/L (132-148) 08/28/18 07:00 Potassium 3.7 mmol/L (3.6-5.0) 08/28/18 07:00 Chloride 107 mmol/L (98-107) 08/28/18 07:00 Carbon Dioxide 28 mmol/L (21-33) 08/28/18 07:00 Anion Gap 11 (10-20) 08/28/18 07:00 BUN 13 mg/dL (7-21) 08/28/18 07:00 Creatinine 0.5 mg/dl (0.7-1.2) L 08/28/18 07:00 Est GFR ( Amer) > 60 08/28/18 07:00 Est GFR (Non-Af Amer) > 60 08/28/18 07:00 Random Glucose 94 mg/dL (70-110) 08/28/18 07:00 Calcium 8.4 mg/dL (8.4-10.5) 08/28/18 07:00 Total Bilirubin 0.2 mg/dL (0.2-1.3) 08/26/18 15:30 AST 37 U/L (14-36) H D 08/26/18 15:30 ALT 28 U/L (7-56) 08/26/18 15:30 Alkaline Phosphatase 84 U/L (38-126) 08/26/18 15:30 Total Protein 8.0 g/dL (5.8-8.3) 08/26/18 15:30 Albumin 4.3 g/dL (3.0-4.8) 08/26/18 15:30 Globulin 3.7 gm/dL 08/26/18 15:30 Albumin/Globulin Ratio 1.2 (1.1-1.8) 08/26/18 15:30 Lipase 88 U/L (23-300) 08/26/18 15:30 Venous Blood Potassium 3.7 mmol/L (3.6-5.2) 08/26/18 15:30 Urine Color Yellow (YELLOW) 08/26/18 15:30 Urine Appearance Slight-cloudy (CLEAR) 08/26/18 15:30 Urine pH 7.0 (4.7-8.0) 08/26/18 15:30 Ur Specific [place] 1.020 (1.005-1.035) 08/26/18 15:30 Urine Protein Negative mg/dL (<30 mg/dL) 08/26/18 15:30 Urine Glucose (UA) Negative mg/dL (NEGATIVE) 03/15/19 15:30 Urine Ketones Negative mg/dL (NEGATIVE) 08/26/18 15:30 Urine Blood Trace-intact (NEGATIVE) H 08/26/18 15:30 Urine Nitrate Negative (NEGATIVE) 08/26/18 15:30 Urine Bilirubin Negative (NEGATIVE) 08/26/18 15:30 Urine Urobilinogen 1.0 E.U./dL (<1 E.U./dL) H 08/26/18 15:30 Ur Leukocyte Esterase Large Gustavo/uL (NEGATIVE) H 08/26/18 15:30 Urine RBC 10 - 15 /hpf (0-2) H 08/26/18 15:30 Urine WBC Tntc /hpf (0-6) H 08/26/18 15:30 Ur Epithelial Cells 3 - 4 /hpf (0-5) 08/26/18 15:30 Discharge Exam - Head Exam Head Exam: ATRAUMATIC, NORMOCEPHALIC Discharge Plan - Follow Up Plan Condition: GUARDED Disposition: HOME/ ROUTINE Additional Instructions: Please follow up with your primary care doctor at the [facility] as scheduled for post hospitalization follow up. Please discuss all medical issues addressed during your admission. Please take all of your home medications as prescribed by your physician. Should your symptoms return, please seek emergency medical attention immediately at your nearest ER. Referrals: [facility] at [facility] [place]Outside]
--- NOTE | 2018-08-28 16:48 | CP.PCM.PN ---
Subjective - Date & Time of Evaluation Date of Evaluation: 08/28/18 Time of Evaluation: 13:00 - Subjective Subjective: Infectious Disease Follow Up: August 28, 2018 53 yo female with fever and back pain for the past month. Recent in the ER for similar complaints on August 20, 2018. The patient PMHx includes bronchitis, UTI, hypertension, and diabetes. She was given a fluoroquinolone for treatment. She could not tolerate doses of the antibiotic after the 3rd day where she had nausea and vomiting. Cultures of the urine from the August 20, 2018, ER visit were negative. The patient states that right sided flank pain and back pain resolved today. Currently afebrile. Relatively low WBC count. ESR of 44. Objective - Vital Signs/Intake and Output Vital Signs (last 24 hours): Temp Pulse Resp BP Pulse Ox 97.8 F 67 18 113/70 99 08/28/18 06:00 08/28/18 06:00 08/28/18 06:00 08/28/18 06:00 08/28/18 06:00 Intake and Output: 08/28/18 08/28/18 06:59 18:59 Intake Total 540 Balance 540 - Labs Labs: 08/28/18 07:00 08/28/18 07:00 - Constitutional Appears: Non-toxic, No Acute Distress, Chronically Ill - Head Exam Head Exam: ATRAUMATIC, NORMOCEPHALIC - Eye Exam Eye Exam: EOMI, PERRL Pupil Exam: NORMAL ACCOMODATION, PERRL - ENT Exam ENT Exam: Mucous Membranes Moist, Normal External Ear Exam, TM's Normal Bilaterally - Neck Exam Neck Exam: Full ROM, Normal Inspection - Respiratory Exam Respiratory Exam: Clear to Ausculation Bilateral, NORMAL BREATHING PATTERN. absent: Rales, Rhonchi, Wheezes - Cardiovascular Exam Cardiovascular Exam: REGULAR RHYTHM, RRR, +S1, +S2 - GI/Abdominal Exam GI & Abdominal Exam: Soft, Normal Bowel Sounds. absent: Distended, Tenderness - Extremities Exam Extremities Exam: Full ROM, Normal Inspection - Neurological Exam Neurological Exam: Alert, Awake, CN II-XII Intact, Oriented x3 - Psychiatric Exam Psychiatric exam: Normal Affect, Normal Mood - Skin Skin Exam: Intact, Normal Color Assessment and Plan - Assessment and Plan (Free Text) Assessment: 53 yo female with subjective fever, back pain, and frequent urination with signs of a UTI. Urine cultures pending. The patient was on Fluoroquinolone for treatment. Cannot rule out pyelonephritis at this point. Started on Cefepime. Cefepime can be given 1gm Q12hrs for now. Awaiting culture results. Negative Abdominal X-ray. Renal Ultrasound pending. Supportive care. Monitor WBC. Low WBC count but not leukopenia. Renal Ultrasound also appears to be negative. If back pain persists, consider CT scan. Check ESR. ESR is relatively low at 44. The patient states that the back and right flank pain had resolved. All cultures are negative at this time. No specific findings for the patient's initial back pain and right flank pain. No evidence of pyelonephritis, UTI, or other cause by exam, lab testing, or imaging study as of now. Would stop antibiotics at this point. Thank you for allowing me to participate in the care of the patient, we will follow with you. Case discussed with Dr. Hernandez.
== END 2018-08-28 14:34 | disposition home or self-care (01) | DRG 463 ==
LOC: ED 14:20 → ERH 17:10 → 5RSO 20:42
PROVIDERS: ADMIT Hospitalist; ATTEND Internal Medicine
DX: N39.0 Urinary tract infection, site not specified (principal); I10 Essential (primary) hypertension; E11.9 Type 2 diabetes mellitus without complications; E78.5 Hyperlipidemia, unspecified; M81.0 Age-related osteoporosis without current pathological fracture

== ENCOUNTER 2018-10-15 10:17 | Outpatient (CLI) | payer OTHER | END 2018-10-15 10:18 | disposition home or self-care (01) | LOC: RAD 10:17 ==

== ENCOUNTER 2018-11-14 13:38 | Emergency (ER) | payer OTHER ==
[2018-11-14 13:49] VITALS: BP 116/78; O2SAT 98; BMI 30.9
[2018-11-14] MEDS ORDERED: Sodium Chloride 0.9% 500 ML IV ONE (14:06)
--- NOTE | 2018-11-14 14:10 | ED PDOC ---
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 No radiation of the pain. No diarrhea. No fever or chills. She has had 3 or 4 similar episodes over the last 2 years. 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 No travel or exposure. Past Medical History - Infectious Disease Hx of Infectious Diseases: None - Tetanus Immunization Tetanus Immunization: Unknown - Past Medical History Past Medical History: Non-Contributing - Cardiac Hx Cardiac Disorders: Yes Hx Hypertension: Yes - Pulmonary Hx Respiratory Disorders: No - Neurological Hx Neurological Disorder: Yes - HEENT Hx HEENT Disorder: No - Renal Hx Renal Disorder: No - Endocrine/Metabolic Hx Endocrine Disorders: No - Hematological/Oncological Hx Blood Disorders: No - Integumentary Hx Dermatological Disorder: No - Musculoskeletal/Rheumatological Hx Musculoskeletal Disorders: Yes Hx Osteoporosis: Yes - Gastrointestinal Hx Gastrointestinal Disorders: No - Genitourinary/Gynecological Hx Genitourinary Disorders: No - Psychiatric Hx Psychophysiologic Disorder: Yes Hx Anxiety: Yes Hx Depression: Yes Hx Substance Use: No - Past Surgical History Past Surgical History: No Previous - Anesthesia Hx Anesthesia: No Hx Anesthesia Reactions: No Hx Malignant Hyperthermia: No - Suicidal Assessment Feels Threatened In Home Enviroment: No Family/Social History - Physician Review Nursing Documentation Reviewed: Yes Family/Social History: Unknown Family HX Smoking Status: Never Smoked Hx Alcohol Use: No Hx Substance Use: No Hx Substance Use Treatment: No Allergies/Home Meds Allergies/Adverse Reactions: Allergies shellfish derived Allergy (Verified 11/14/18 13:49) ANAPHYLAXIS Home Medications: Home Meds Medication Instructions Recorded Confirmed Clonazepam [Klonopin] 0.5 mg PO HS 04/15/18 08/26/18 Atenolol [Tenormin] 50 mg PO DAILY 08/20/18 08/26/18 Review of Systems - Physician Review All systems were reviewed & negative as marked: Yes - Review of Systems Constitutional: absent: Fatigue, Fevers Respiratory: absent: SOB, Cough, Wheezing Cardiovascular: absent: Chest Pain, Palpitations, Syncope Gastrointestinal: Abdominal Pain, Nausea, Vomiting, Anorexia. absent: Diarrhea Genitourinary Female: Other (Last menstrual period is 5 years ago). absent: Dysuria, Frequency, Hematuria Neurological: Normal Physical Exam Vital Signs Temp Pulse Resp BP Pulse Ox 11/14/18 13:49 98.4 F 71 18 116/78 98 Temperature: Afebrile Blood Pressure: Normal Pulse: Regular Respiratory Rate: Normal Appearance: Positive for: Well-Appearing, Non-Toxic, Uncomfortable Pain Distress: Moderate Mental Status: Positive for: other (Awake alert and cooperative) - Systems Exam Head: Present: Atraumatic, Normocephalic Pupils: Present: PERRL Extroacular Muscles: Present: EOMI Conjunctiva: Present: Normal Mouth: Present: Moist Mucous Membranes Pharnyx: No: ERYTHEMA, EXUDATE, TONSILS ENLARGED Neck: Present: Normal Range of Motion Respiratory/Chest: Present: Clear to Auscultation, Good Air Exchange. No: Respiratory Distress, Accessory Muscle Use Cardiovascular: Present: Regular Rate and Rhythm, Normal S1, S2. No: Murmurs Abdomen: Present: Tenderness (Moderate right upper quadrant tenderness with no guarding and no rebound), Normal Bowel Sounds. No: Distention, Peritoneal Signs, Rebound, Guarding Back: Present: Normal Inspection. No: CVA Tenderness Upper Extremity: Present: Normal Inspection. No: Cyanosis, Edema Lower Extremity: Present: Normal Inspection. No: Edema Neurological: Present: GCS=15, CN II-XII Intact, Speech Normal Skin: Present: Warm, Dry, Normal Color. No: Rashes Medical Decision Making ED Course and Treatment: 11/14/18 15:30 Symptoms have improved. Discharged home accompanied by her to follow-up with PMD or in the clinic. Follow-up in ER as needed. - Lab Interpretations I have reviewed the lab results: Yes - RAD Interpretation Narrative RAD Interpretations (Text): 11/14/18 15:34 Abdominal US: Dictator : Sabine Johansen MD FINDINGS: LIVER: Measures 13.6 cm. There is diffuse increased echogenicity of the liver parenchyma. No mass. No intrahepatic bile duct dilatation. GALLBLADDER: The gallbladder is distended. There are no gallstones, wall thickening or pericholecystic fluid. The sonographic Venegas's sign is negative. COMMON BILE DUCT: Measures 6.9 mm. Mild diffuse dilatation. No sonographic ev idence for choledocholithiasis or intraluminal abnormality PANCREAS: Unremarkable as visualized. No mass. No ductal dilatation. RIGHT KIDNEY: Measures 9.5cm. Normal echogenicity. No calculus, mass, or hydronephrosis. There is a 1.8 x 1.8 x 1.7 cm simple parapelvic cyst in the interpolar region. LEFT KIDNEY: Measures 10.9cm. Normal echogenicity. No calculus, mass, or hydronephrosis. SPLEEN: Normal in size and contour. No mass. AORTA: No aneurysmal dilatation. IVC: Unremarkable. OTHER FINDINGS: None. IMPRESSION: 1. Fatty liver. 2. No distended gallbladder. Cholelithiasis. 3. Mild diffuse dilatation of the common bile duct without sonographic evidence for cholelithiasis or intraluminal abnormality. Please correlate with CT scan of the abdomen/MRCP to exclude distal obstruction Radiology Orders: 11/14/18 14:05 ABDOMEN COMPLETE [US] Stat Ultrasound of the abdomen is read by the radiologist shows diffuse mild common bile duct dilatation with no choledocholithiasis. Otherwise within normal limits. She will need an outpatient MRCP. Court Commissioner: Radiologist - Medication Orders Current Medication Orders: Sodium Chloride (Sodium Chloride 0.9%) 500 mls @ 500 mls/hr IV ONCE ONE Stop: 11/14/18 15:05 Ketorolac Tromethamine (Toradol) 15 mg IVP ONCE ONE Stop: 11/14/18 14:07 Ondansetron HCl (Zofran Inj) 4 mg IVP ONCE ONE Stop: 11/14/18 14:07 Pantoprazole Sodium (Protonix Inj) 40 mg IVP ONCE STA Stop: 11/14/18 14:07 - Scribe Statement The provider has reviewed the documentation as recorded by the Ramiroibbrigitte Alexander Provider Scribe Attestation: All medical record entries made by the Scribe were at my direction and personally dictated by me. I have reviewed the chart and agree that the record accurately reflects my personal performance of the history, physical exam, medical decision making, and the department course for this patient. I have also personally directed, reviewed, and agree with the discharge instructions and disposition. Disposition/Present on Arrival - Present on Arrival Any Indicators Present on Arrival: No History of DVT/PE: No History of Uncontrolled Diabetes: No Urinary Catheter: No History of Decub. Ulcer: No History Surgical Site Infection Following: None - Disposition Have Diagnosis and Disposition been Completed?: Yes Diagnosis: Abdominal pain, Right upper quadrant pain Disposition: HOME/ ROUTINE Disposition Time: 15:30 Patient Plan: Discharge Condition: IMPROVED Discharge Instructions (ExitCare): Acute Abdomen (Belly Pain), Nausea and Vomiting, Adult (DC) Additional Instructions: Follow-up with PMD. Follow-up in ER as needed. Prescriptions: Phenazopyridine HCl [Pyridium] 200 mg PO Q8 #9 tablet Ondansetron ODT [Zofran ODT] 4 mg PO Q6 #20 odt Referrals: FAMILY PROVIDER,NO [Primary Care Provider] - Follow up with primary Forms: [facility] [facility] (Kyrgyz), WORK NOTE
[2018-11-14 14:26] LABS: BASO # 0.01 K/mm3 (0.0-2.0); BASO % 0.2 % (0.0-3.0); EOS # 0.1 (0.0-0.7); EOS % 2.8 % (1.5-5.0); HEMOGLOBIN 13.3 g/dL (12.0-16.0); LYMPH # 1.5 (1.2-3.4); LYMPH % 31.2 % (22.0-35.0); MEAN CELL VOLUME 90.8 fl (80.0-105.0); MEAN CORPUSCULAR HEMOGLOBIN 30.5 pg (25.0-35.0); MEAN CORPUSCULAR HGB CONC 33.6 g/dl (31.0-37.0); MONO # 0.5 (0.1-0.6); MONO % 9.6 % (1.0-6.0); RBC 4.36 10^6/uL (3.5-6.1); RED CELL DISTRIBUTION WIDTH 13.3 % (11.5-14.5); WHITE BLOOD COUNT 4.7 10^3/uL (4.5-11.0)
[2018-11-14 14:36] LABS: ALB/GLOB RATIO 1.1 (1.1-1.8); ALBUMIN 4.3 g/dL (3.0-4.8); ALT/SGPT 31 U/L (7-56); AST/SGOT 31 U/L (14-36); BLOOD UREA NITROGEN 14 mg/dL (7-21); CALCIUM 9.4 mg/dL (8.4-10.5); GFR NON-AFRICAN AMERICAN > 60; LIPASE 112 U/L (23-300)
--- NOTE | 2018-11-14 15:27 | US ---
Date of service: 11/14/2018 HISTORY: RUQ pain COMPARISON: None. TECHNIQUE: Grayscale imaging was performed. FINDINGS: LIVER: Measures 13.6 cm. There is diffuse increased echogenicity of the liver parenchyma. No mass. No intrahepatic bile duct dilatation. GALLBLADDER: The gallbladder is distended. There are no gallstones, wall thickening or pericholecystic fluid. The sonographic Venegas's sign is negative. COMMON BILE DUCT: Measures 6.9 mm. Mild diffuse dilatation. No sonographic evidence for choledocholithiasis or intraluminal abnormality PANCREAS: Unremarkable as visualized. No mass. No ductal dilatation. RIGHT KIDNEY: Measures 9.5cm. Normal echogenicity. No calculus, mass, or hydronephrosis. There is a 1.8 x 1.8 x 1.7 cm simple parapelvic cyst in the interpolar region. LEFT KIDNEY: Measures 10.9cm. Normal echogenicity. No calculus, mass, or hydronephrosis. SPLEEN: Normal in size and contour. No mass. AORTA: No aneurysmal dilatation. IVC: Unremarkable. OTHER FINDINGS: None. IMPRESSION: 1. Fatty liver. 2. No distended gallbladder. Cholelithiasis. 3. Mild diffuse dilatation of the common bile duct without sonographic evidence for cholelithiasis or intraluminal abnormality. Please correlate with CT scan of the abdomen/MRCP to exclude distal obstruction
[2018-11-14 15:40] VITALS: PULSE 79; RESP 19; TEMP 98.2
== END 2018-11-14 15:40 | disposition home or self-care (01) ==
LOC: ED 13:38
DX: R10.11 Right upper quadrant pain (principal); I10 Essential (primary) hypertension
CPT/HCPCS: 76700; 80053; 83690; 83735; 85025; 96374; 96375; 99281; C9113; J1885; J7040